=== PATIENT | female | born 1945 | race African-American/Black ===

== ENCOUNTER 2017-08-03 07:51 | Outpatient (CLI) | payer MEDICARE | END 2017-08-03 07:52 | disposition home or self-care (01) | LOC: BICMAMMO 07:51 | PROVIDERS: ATTEND Obstetrics & Gynecology | DX: Z12.31 Encounter for screening mammogram for malignant neoplasm of breast (principal) | CPT/HCPCS: 77063; 77067 ==

== ENCOUNTER 2018-01-05 05:16 | Emergency (ER) | payer MEDICARE ==
--- NOTE | 2018-01-05 08:37 | RAD ---
TWO VIEWS LEFT HIP: HISTORY: Pain. The patient went to stand up and felt a pop. COMPARISON: 08/23/16. FINDINGS: Stable mild degenerative change with loss of joint space height. Contour of the femoral head is main tained. There is no fracture. Visualized bony pelvis is otherwise unchanged and unremarkable. IMPRESSION: Stable mild degenerative change, without evidence of fracture of dislocation. POS: [facility]
== END 2018-01-05 06:54 | disposition home or self-care (01) ==
LOC: ERS 05:16
DX: M25.552 Pain in left hip (principal); G43.909 Migraine, unspecified, not intractable, without status migrainosus; J44.9 Chronic obstructive pulmonary disease, unspecified; I50.9 Heart failure, unspecified; F17.210 Nicotine dependence, cigarettes, uncomplicated; Z79.899 Other long term (current) drug therapy

== ENCOUNTER 2018-05-11 23:15 | Observation (INO) | payer MEDICARE ==
[2018-05-12] MEDS ORDERED: Ondansetron ODT 4 MG TAB ONE
[2018-05-12] MEDS ORDERED: Dextrose 5% in Water 1,000 ML IV PRN (03:50)
[2018-05-12] MEDS ORDERED: Ondansetron PF 4 MG/2 ML Vial IVP PRN (03:50)
[2018-05-12] MEDS ORDERED: HYDROcodone/Acetaminophen 10/325 mg Tablet PO PRN (03:50)
[2018-05-12] MEDS ORDERED: Dextrose 50% Abboject 50 ML SYRINGE SLOW IVP PRN (03:50)
[2018-05-12] MEDS ORDERED: hydrALAZINE 20 MG/ML VIAL SLOW IVP PRN (03:50)
[2018-05-12] MEDS ORDERED: traMADol HCl 50 MG TAB PO PRN (03:55)
[2018-05-12] MEDS ORDERED: HYDROcodone/Acetaminophen 5/325 mg Tablet ONE ×2 (04:02)
[2018-05-12 04:10] LABS: #Eosinphils 0.2 thou/uL (0.0-0.7); #Lymphocytes 2.4 thou/uL (1.20-3.40); #Monocytes 0.7 thou/uL (0.11-0.59); #Neutrophils 3.7 thou/uL (1.40-6.50); %Basophils 0.6 % (0.0-1.0); %Eosinophils 3.1 % (0.0-10.0); %Lymphocytes 34.3 % (21.0-51.0); %Monocytes 9.5 % (0.0-10.0); %Neutrophils 52.5 % (42.0-75.0); Hemoglobin 11.6 g/dL (12.0-16.0); Mean Corpuscular HGB CONC 32.1 g/dL (32.0-36.0); Mean Corpuscular Hemoglobin 29.7 pg (27.0-31.0); Mean Corpuscular Volume 92.7 fL (78.0-98.0); Mean Platelet Volume 7.6 fL (7.4-10.4); Platelet Count 225 thou/uL (130-400); RBC Distribution Width 12.1 % (11.5-14.5)
[2018-05-12 04:58] VITALS: BMI 23.8
[2018-05-12] MEDS: Acetaminophen 325 MG TAB PO SCH ×4 (05:13→23:18)
[2018-05-12] MEDS: traMADol HCl 50 MG TAB PO SCH ×4 (05:13→23:20)
[2018-05-12] MEDS: Ipratropium Bromide 2.5 ml Neb NEB SCH ×3 (06:26→19:55)
[2018-05-12] MEDS: Budesonide 0.5 MG/2 ML NEB INH SCH ×2 (06:28→21:45)
[2018-05-12] MEDS ORDERED: Spiriva 18 MCG CAP (Box of 5 Caps) INH SCH (07:00)
--- NOTE | 2018-05-12 07:35 | RAD ---
LEFT KNEE 4 VIEWS: Date: 05/11/18 HISTORY: Pain. COMPARISON: None. FINDINGS: There is a subtle sagittally oriented lucency of the medial tibial spine. Fracture line is seen exten ding to the medial tibial metaphysis. No articular surface extension. No significant joint effusion. IMPRESSION: Age-indeterminate fracture of the medial tibial spine extending to the medial tibial metaphysis. POS: [facility]
--- NOTE | 2018-05-12 07:38 | CT ---
CT LEFT KNEE WITHOUT CONTRAST: Date: 05/12/18 HISTORY: Trauma. Follow-up. COMPARISON: Radiograph from same date. FINDINGS: There is a sagittal split fracture extending from the medial tibial spine with two separate exit poin ts of the medial tibial diaphysis and lateral tibial diaphysis. These fractures are nondisplaced. Giv en the lack of joint effusion, these may not be hyperacute. There is, however, no articular surface e xtension; therefore, this may explain the lack of joint effusion. There is lateral patellar subluxation with elongation of the lateral patellar facet. IMPRESSION: Sagittal split fracture of the medial tibial spine with two separate exit points extending the medial and lateral tibial metadiaphysis. No significant joint effusion, although this fracture does not ext end into the articular surface. POS: [facility]
[2018-05-12] MEDS: predniSONE 1 MG TAB PO SCH (08:42)
[2018-05-12] MEDS: Aspirin 81 mg Enteric Coated Tablet PO SCH (08:43)
[2018-05-12] MEDS: Famotidine 20 MG TAB PO SCH ×2 (08:43→21:25)
[2018-05-12] MEDS: Furosemide 40 MG TAB PO SCH (08:43)
[2018-05-12] MEDS: Potassium Chloride 20 MEQ TAB PO SCH (08:45)
[2018-05-12] MEDS: Carvedilol 6.25 MG TAB PO SCH ×2 (08:46→21:24)
[2018-05-12] MEDS: Heparin 5,000 UNITS/ML VIAL SC SCH ×3 (08:46→21:26)
[2018-05-12] MEDS ORDERED: Leflunomide 10 mg Tablet PO SCH (09:00)
--- NOTE | 2018-05-12 11:01 | HP ---
Referred by Dr. Eulalia Herrera in the Emergency Department. TRAUMA ATTENDING: Son Corley MD CONSULTING ORTHOPEDIST: Jarred Sena MD REASON FOR ADMISSION: Left tibial plateau fracture, unable to get into rehab this evening. HISTORY OF PRESENT ILLNESS: Ms. Palomino is a 72-year-old female with past medical history of CHF with last known EF at 20%, COPD, not on home oxygen, rheumatoid arthritis, who presents to the Emergency Department today with a chief complaint of 1 day of left knee pain. The patient states that she tripped on a scarf from the floor, landing straight on her left knee. Had immediate pain to the area and presented here. The patient was found on CT to have tibial plateau fracture. Orthopedics was consulted and recommended nonweightbearing, knee immobilizer, and bulky dressing. Nonoperative at this time. However, the patient was reportedly being at home by herself. There is concern about her ADLs, nonweightbearing, using crutches. Therefore, [facility] was consulted and given her insurance, it was unable to be approved, therefore we were consulted for admission while awaiting approval for inpatient rehab. I have discussed with the patient at bedside. Her daughter actually does live with her, and is home nightly, works out of town, but not overnight. However, she still believes that rehab would be the best option believe that she would be able to complete all of her ADLs, therefore we will go forward with admission. I have seen the patient in the Emergency Department, complaining of knee pain, has been controlled with [place]. There are no labs to review at this time. She has no other complaints. She had no chest pain, no shortness of breath, no nausea, no vomiting, no recent illness, no fever, no headache, no neck pain, no back pain. Pain is isolated to her left knee. Her vital signs remained stable here. The patient's primary care is Dr. Migue Jimenez. REVIEW OF SYSTEMS: Pertinent positive and negative as per HPI; otherwise, is regarded as negative. PAST MEDICAL HISTORY: 1. CHF with reduced EF. 2. COPD. 3. Rheumatoid arthritis. MEDICATIONS: 1. . 2. Amitriptyline 150 mg daily. 3. Lasix 40 mg daily. 4. Potassium 20 mEq daily. 5. Cymbalta 60 mg daily. 6. Coreg 12.5 mg b.i.d. 7. Atorvastatin daily. 8. Breo 1 puff daily. 9. Prednisone 3 mg total daily. 10. Spiriva 18 mcg daily. ALLERGIES: TO, 1. ALBUTEROL CAUSING SEVERE ANXIETY. 2. CODEINE. SOCIAL HISTORY: The patient is a retired corrections officer. She is a former smoker. Social drinker and no drug use. Currently, lives in [place] with her daughter. PAST FAMILY HISTORY: Significant for COPD in her mother, lung cancer in her father, lung cancer and ovarian cancer in both of her sisters. PHYSICAL EXAMINATION: VITAL SIGNS: Blood pressure is 131/83, heart rate is 87, respiratory rate is 18, saturating 94% on room air, and temperature is 98.5. GENERAL: This is a 72-year-old female, lying in bed, in no acute distress. HEENT: Normocephalic, atraumatic. NECK: Trachea is midline. No JVD is appreciated. RESPIRATORY: Equal rise and fall bilaterally. Breath sounds are clear to auscultation in upper and lower bilaterally. CARDIOVASCULAR: Regular rate and rhythm. No murmurs are appreciated. Strong pulses in 4 extremities. No edema. ABDOMEN: Soft and nontender. MUSCULOSKELETAL: Moves extremities well. Has sensation and pulses noted distal to her splinting of the left lower extremity that is in a straight knee immobilizer at this time. PSYCH: Normal mood and affect. NEURO: Alert and oriented to person, place, time, and event. LABORATORY DATA: There is none to review today. I have reviewed past medical chart for last known EF of 20% to 25% by left heart cath. CT of lower extremity demonstrates a left tibial plateau fracture. ASSESSMENT: 1. Left tibial plateau fracture. 2. Acute traumatic pain. 3. Mechanical fall. 4. History of chronic obstructive pulmonary disease, congestive heart failure, and rheumatoid arthritis. PLAN: 1. We will admit to the surgery elias. 2. Pain control as needed. 3. Obtain CBC and CMP now for screening labs. 4. Scheduled Tylenol and tramadol. We will add NSAID based on renal function. 5. Oxygen as needed to maintain SpO2 greater than 92%. 6. Continue Spiriva and budesonide daily. The patient reported allergic to albuterol. 7. Continue prednisone daily. 8. Continue home medications. 9. We will get social work consult and rehab screen tomorrow. 10. PT/OT orders have been placed. 11. Diet will be cardiac diet. 12. Full code. 13. Access of peripheral IVs. 14. Prophylaxis will be famotidine and SCD. Add Lovenox after labs are back if tolerated. 15. Disposition is surgery elias. I have updated Ms. Palomino at the bedside, there is no family to update and answered all questions and coordinated care with the Emergency Department physician. Job ID: [id number]
[2018-05-12] MEDS: Atorvastatin Calcium 20 MG TAB PO SCH (21:25)
[2018-05-13] MEDS: Ipratropium Bromide 2.5 ml Neb NEB SCH ×5 (00:53→23:10)
[2018-05-13] MEDS: Acetaminophen 325 MG TAB PO SCH ×3 (05:10→17:47)
[2018-05-13] MEDS: traMADol HCl 50 MG TAB PO SCH ×3 (05:10→17:49)
[2018-05-13] MEDS: Budesonide 0.5 MG/2 ML NEB INH SCH ×2 (06:59→19:50)
[2018-05-13 07:18] LABS: #Eosinphils 0.3 thou/uL (0.0-0.7); #Lymphocytes 3.1 thou/uL (1.20-3.40); #Monocytes 0.6 thou/uL (0.11-0.59); #Neutrophils 3.5 thou/uL (1.40-6.50); %Basophils 0.6 % (0.0-1.0); %Eosinophils 3.8 % (0.0-10.0); %Lymphocytes 41.2 % (21.0-51.0); %Monocytes 8.1 % (0.0-10.0); %Neutrophils 46.4 % (42.0-75.0); Hemoglobin 10.6 g/dL (12.0-16.0); Mean Corpuscular HGB CONC 32.8 g/dL (32.0-36.0); Mean Corpuscular Volume 91.5 fL (78.0-98.0); Mean Platelet Volume 8.1 fL (7.4-10.4); Platelet Count 235 thou/uL (130-400); RBC Distribution Width 12.2 % (11.5-14.5); Red Blood Cell (RBC) Count 3.54 mill/uL (4.20-5.40); White Blood Cell (WBC) Count 7.5 thou/uL (4.8-10.8)
[2018-05-13 07:39] LABS: Anion Gap 13 mmol/L (10-20); BUN (Urea Nitrogen) 16 mg/dL (9.8-20.1); Calc. Creatinine Clearance 42 mL/min (70-130); Calcium 9.4 mg/dL (7.8-10.44); Carbon Dioxide 27 mmol/L (23-31); Chloride 105 mmol/L (98-107); Estimated GFR-MDRD 53; Glucose 97 mg/dL (83-110); Potassium 3.7 mmol/L (3.5-5.1); Sodium 141 mmol/L (136-145)
[2018-05-13] MEDS: Furosemide 40 MG TAB PO SCH (09:39)
[2018-05-13] MEDS: Aspirin 81 mg Enteric Coated Tablet PO SCH (09:39)
[2018-05-13] MEDS: predniSONE 1 MG TAB PO SCH (09:39)
[2018-05-13] MEDS: Famotidine 20 MG TAB PO SCH ×2 (09:40→20:35)
[2018-05-13] MEDS: Carvedilol 6.25 MG TAB PO SCH ×2 (09:40→20:35)
[2018-05-13] MEDS: Leflunomide 10 mg Tablet PO SCH (09:40)
[2018-05-13] MEDS: Heparin 5,000 UNITS/ML VIAL SC SCH ×3 (09:40→20:35)
[2018-05-13] MEDS: Potassium Chloride 20 MEQ TAB PO SCH (09:40)
[2018-05-13] MEDS: Senokot S 8.6-50 MG TAB PO SCH (20:33)
[2018-05-13] MEDS: Atorvastatin Calcium 20 MG TAB PO SCH (20:35)
--- NOTE | 2018-05-13 21:20 | PRG ---
DATE OF SERVICE: 05/13/2018 SUBJECTIVE: A 72-year-old female status post tripped and fell, landing on her left knee, hospital day #2, left tibial plateau fracture, nonsurgical. The patient remains in a knee immobilizer. Reports moderate pain with physical therapy. She was unable to ambulate very far due to the pain today. No overnight events. The patient reports moderate appetite at this time. No BM since admission. OBJECTIVE: VITAL SIGNS: Blood pressure 124/76, pulse 88, respirations 16, and 93% on SpO2 on room air. LABORATORY DATA: WBC 7.5, RBC 3.54, hemoglobin 10.6, hematocrit 32.4, and platelets 235. Sodium 141, potassium 3.7, chloride 105, BUN 16, creatinine 1.21, glucose 97, and calcium 9.4. No diagnostics. ASSESSMENT AND PLAN: 1. Left tibial plateau fracture. 2. Acute traumatic pain. 3. Mechanical fall. 4. History of chronic obstructive pulmonary disease, congestive heart failure, and rheumatoid arthritis. PLAN: 1. Pain control as needed. 2. Discontinue the hydrocodone and schedule the patient with Tylenol and tramadol. 3. Continue PT, OT. 4. Rehab screen. 5. We will place the patient on DVT prophylaxis. 6. We will place the patient on a bowel regimen. 7. The patient has been discussed with the attending surgeon. Job ID: [id number] [facility]
[2018-05-14] MEDS: traMADol HCl 50 MG TAB PO SCH ×4 (01:12→18:06)
[2018-05-14] MEDS: Acetaminophen 325 MG TAB PO SCH ×4 (01:12→18:07)
[2018-05-14] MEDS: Ipratropium Bromide 2.5 ml Neb NEB SCH ×3 (06:55→19:52)
[2018-05-14] MEDS: Budesonide 0.5 MG/2 ML NEB INH SCH ×2 (06:57→19:52)
[2018-05-14] MEDS: predniSONE 1 MG TAB PO SCH (08:00)
[2018-05-14] MEDS: Polyethylene Glycol 3350 17 GM Packet PO SCH (09:24)
[2018-05-14] MEDS: Carvedilol 6.25 MG TAB PO SCH ×2 (09:25→20:12)
[2018-05-14] MEDS: Leflunomide 10 mg Tablet PO SCH (09:25)
[2018-05-14] MEDS: Senokot S 8.6-50 MG TAB PO SCH ×2 (09:25→20:12)
[2018-05-14] MEDS: Famotidine 20 MG TAB PO SCH ×2 (09:26→20:12)
[2018-05-14] MEDS: Aspirin 81 mg Enteric Coated Tablet PO SCH (09:26)
[2018-05-14] MEDS: Furosemide 40 MG TAB PO SCH (09:26)
[2018-05-14] MEDS: Heparin 5,000 UNITS/ML VIAL SC SCH ×3 (09:26→20:12)
[2018-05-14] MEDS: Potassium Chloride 20 MEQ TAB PO SCH (09:26)
--- NOTE | 2018-05-14 19:57 | PRG ---
DATE OF SERVICE: 05/14/2018 SUBJECTIVE: This is a 72-year-old female status post trip and fall, landing on her left knee, hospital day #3, left tibial plateau fracture. Nonsurgical injury. The patient remains in a knee immobilizer. The patient has refused several doses of her scheduled pain medication throughout the night and this morning. Also refused her stool softeners as she has reported loose stools. The patient reported to the nurse that she refused pain medication as her pain was well tolerated at those times. The patient did participate with Physical Therapy today, but only walked 14 feet as she complained that she needed to rest and felt tired with the nonweightbearing activities. OBJECTIVE: VITAL SIGNS: Temperature 98.1, pulse 92, blood pressure 123/82, respirations 16, and SpO2 of 93% on room air. LABORATORY DATA/DIAGNOSTICS: There is no laboratory data or diagnostics. ASSESSMENT AND PLAN: We will continue physical therapy and pain management. The patient has been approved for inpatient rehab, pending insurance. This patient has been discussed with the attending surgeon. Job ID: [id number] [facility]
[2018-05-14] MEDS: Atorvastatin Calcium 20 MG TAB PO SCH (20:12)
[2018-05-15] MEDS: Ipratropium Bromide 2.5 ml Neb NEB SCH ×4 (00:06→19:22)
[2018-05-15] MEDS: Acetaminophen 325 MG TAB PO SCH ×4 (01:40→17:24)
[2018-05-15] MEDS: traMADol HCl 50 MG TAB PO SCH ×4 (03:04→17:25)
[2018-05-15] MEDS: Budesonide 0.5 MG/2 ML NEB INH SCH ×2 (07:13→19:22)
[2018-05-15 08:09] LABS: #Eosinphils 0.3 thou/uL (0.0-0.7); #Lymphocytes 3.2 thou/uL (1.20-3.40); #Monocytes 0.5 thou/uL (0.11-0.59); #Neutrophils 3.3 thou/uL (1.40-6.50); %Basophils 0.3 % (0.0-1.0); %Eosinophils 3.4 % (0.0-10.0); %Lymphocytes 43.6 % (21.0-51.0); %Monocytes 7.3 % (0.0-10.0); %Neutrophils 45.3 % (42.0-75.0); Hemoglobin 10.9 g/dL (12.0-16.0); Mean Corpuscular HGB CONC 31.8 g/dL (32.0-36.0); Mean Corpuscular Volume 91.2 fL (78.0-98.0); Mean Platelet Volume 7.5 fL (7.4-10.4); Platelet Count 259 thou/uL (130-400); RBC Distribution Width 12.2 % (11.5-14.5); Red Blood Cell (RBC) Count 3.76 mill/uL (4.20-5.40); White Blood Cell (WBC) Count 7.4 thou/uL (4.8-10.8)
[2018-05-15 08:27] LABS: Anion Gap 14 mmol/L (10-20); BUN (Urea Nitrogen) 18 mg/dL (9.8-20.1); Calc. Creatinine Clearance 42 mL/min (70-130); Calcium 9.5 mg/dL (7.8-10.44); Carbon Dioxide 28 mmol/L (23-31); Chloride 103 mmol/L (98-107); Estimated GFR-MDRD 53; Glucose 82 mg/dL (83-110); Magnesium 2.1 mg/dL (1.6-2.6); Phosphorus 3.1 mg/dL (2.3-4.7); Potassium 3.6 mmol/L (3.5-5.1); Sodium 141 mmol/L (136-145)
[2018-05-15] MEDS: Famotidine 20 MG TAB PO SCH ×2 (08:44→20:13)
[2018-05-15] MEDS: Furosemide 40 MG TAB PO SCH (08:44)
[2018-05-15] MEDS: Potassium Chloride 20 MEQ TAB PO SCH (08:45)
[2018-05-15] MEDS: Aspirin 81 mg Enteric Coated Tablet PO SCH (08:45)
[2018-05-15] MEDS: Carvedilol 6.25 MG TAB PO SCH ×2 (08:45→20:12)
[2018-05-15] MEDS: Leflunomide 10 mg Tablet PO SCH (08:46)
[2018-05-15] MEDS: predniSONE 1 MG TAB PO SCH (08:47)
[2018-05-15] MEDS: Heparin 5,000 UNITS/ML VIAL SC SCH ×3 (08:48→20:12)
[2018-05-15] MEDS: Polyethylene Glycol 3350 17 GM Packet PO SCH (08:56)
[2018-05-15] MEDS: Senokot S 8.6-50 MG TAB PO SCH ×2 (08:57→20:08)
--- NOTE | 2018-05-15 16:10 | PRG ---
DATE OF SERVICE: 05/15/2018 SUBJECTIVE: A 72-year-old female, status post trip and fall, landing on her left knee, hospital day #4, left tibial plateau fracture, nonsurgical injury. The patient remains in a knee immobilizer. States that she slept well last night. The patient was able to get up to the bedside commode by herself and reports it was easier this time and feels like she is getting a little better. The patient has not done physical therapy at this time yet. She reports that the loose stools have improved, but having normal bowel movements. The patient did refuse her 0600 hours dose of pain medication. States that she did not need it. Says that her pain has been well controlled. OBJECTIVE: VITAL SIGNS: Temperature 97.9, heart rate 85, respirations 16, blood pressure 120/80, and SpO2 of 94% on room air. GENERAL: The patient is awake, alert, sitting upright in bed, in no distress. RESPIRATORY: Respirations are even, unlabored, and symmetrical. MUSCULOSKELETAL: The patient moves all extremities. Normal distal pulses. LABORATORY DATA: WBC 7.4, RBCs 3.76, hemoglobin 10.9, hematocrit 34.3, and platelets 259. Sodium 141, potassium 3.6, chloride 103, BUN 18, creatinine 1.21 , glucose 82, calcium 9.5, phosphorus 3.1, and magnesium 2.1. ASSESSMENT AND PLAN: We will continue physical therapy and pain management at this time. The patient has been approved medically for inpatient rehab. I spoke with the Case Management worker yesterday. We are pending insurance approval. Continue supportive care. This patient has been discussed with the attending physician, surgeon. Job ID: [id number] [facility]
[2018-05-15] MEDS: Atorvastatin Calcium 20 MG TAB PO SCH (20:13)
[2018-05-16] MEDS: Ipratropium Bromide 2.5 ml Neb NEB SCH ×5 (00:15→23:18)
[2018-05-16] MEDS: traMADol HCl 50 MG TAB PO SCH ×4 (00:23→17:19)
[2018-05-16] MEDS: Acetaminophen 325 MG TAB PO SCH ×4 (00:23→17:17)
[2018-05-16 05:24] LABS: Bilirubin Negative (Negative); Blood, Urine Negative (Negative); Clarity CLEAR (Clear); Glucose, Urine (Dipstick) Negative (Negative); Leukocyte Small (Negative); Nitrite Negative (Negative); Protein, Urine (Dipstick) Negative (Neg-Trace); Specific Gravity, Urine 1.016 (1.002-1.036); Urobilinogen 0.2 mg/dL (0.2-1.0); pH, Urine 6.5 (5.0-9.0)
[2018-05-16 05:27] LABS: Bacteria/HPF None Seen HPF (None Seen); Hyaline Casts/LPF 0-3 HYALINE CAST LPF (0-3 Hyaline); Pathc Cast-AUWi Flag 0.14 (0-2.49); RBC/HPF 0-3 HPF (0-3); Squamous Epithelial 0-3 HPF (0-3); WBC/HPF 0-3 HPF (0-3)
[2018-05-16] MEDS: Budesonide 0.5 MG/2 ML NEB INH SCH ×2 (08:13→18:48)
[2018-05-16] MEDS: Leflunomide 10 mg Tablet PO SCH (08:31)
[2018-05-16] MEDS: Polyethylene Glycol 3350 17 GM Packet PO SCH (08:31)
[2018-05-16] MEDS: Famotidine 20 MG TAB PO SCH ×2 (08:32→20:12)
[2018-05-16] MEDS: Potassium Chloride 20 MEQ TAB PO SCH (08:32)
[2018-05-16] MEDS: Senokot S 8.6-50 MG TAB PO SCH ×2 (08:33→20:12)
[2018-05-16] MEDS: Furosemide 40 MG TAB PO SCH (08:33)
[2018-05-16] MEDS: Carvedilol 6.25 MG TAB PO SCH ×2 (08:33→20:11)
[2018-05-16] MEDS: Heparin 5,000 UNITS/ML VIAL SC SCH ×3 (08:34→20:11)
[2018-05-16] MEDS: Aspirin 81 mg Enteric Coated Tablet PO SCH (08:34)
[2018-05-16] MEDS: predniSONE 1 MG TAB PO SCH (09:35)
[2018-05-16] MEDS ORDERED: Tamsulosin HCl 0.4 MG CAP PO SCH ×2 (13:45→21:00)
--- NOTE | 2018-05-16 18:22 | PRG ---
DATE OF SERVICE: 05/16/2018 SUBJECTIVE: The patient is a 72-year-old female, status post trip and fall, landing on her left knee, hospital day #5. The patient sustained a left tibial plateau fracture, was evaluated by Orthopedic Surgery, who determined the patient was nonsurgical. The patient remains in a left knee immobilizer. The patient did have some urinary retention overnight but did resolve and was able to urinate without any difficulty. The patient reports she is getting better with physical therapy. She was able to walk approximately 40 feet today. She continues to have bowel movements. The patient voices no other concerns. Pain continues to be well controlled. The patient was denied inpatient rehab by patient's insurance [employer]. OBJECTIVE: VITAL SIGNS: Temperature 98.0, pulse 93, respirations 16, pulse ox 96%, blood pressure 102/68. GENERAL: The patient is awake, alert, no distress, sitting up in bed. HEENT: Atraumatic. Trachea, midline. RESPIRATORY: Respirations even nonlabored and symmetrical. MUSCULOSKELETAL: Moves all extremities. No focal deficits. Positive distal pedal pulses +2. No pedal edema. NEUROLOGIC: No deficits. LABORATORY DATA: There are no labs to evaluate today. ASSESSMENT AND PLAN: We will continue physical therapy and pain management at this time. Case management working on getting the patient placed at a [facility] facility for rehab as the patient was denied inpatient rehab. The patient was denied by her insurance stating that her diagnosis of a tibial plateau fracture did not meet inpatient rehab, was not necessary for that long of rehab, but she would meet criteria for shorter periods of rehab such as skilled facility. We will continue the patient's pain medications and home medications. The patient has been discussed with the attending surgeon. Job ID: [id number]
[2018-05-16] MEDS: Atorvastatin Calcium 20 MG TAB PO SCH (20:12)
[2018-05-17] MEDS: traMADol HCl 50 MG TAB PO SCH ×4 (01:08→17:23)
[2018-05-17] MEDS: Acetaminophen 325 MG TAB PO SCH ×3 (01:08→14:49)
[2018-05-17] MEDS: Ipratropium Bromide 2.5 ml Neb NEB SCH ×3 (06:27→18:57)
[2018-05-17] MEDS: Budesonide 0.5 MG/2 ML NEB INH SCH ×2 (06:29→19:22)
[2018-05-17] MEDS: predniSONE 1 MG TAB PO SCH (08:28)
[2018-05-17] MEDS: Heparin 5,000 UNITS/ML VIAL SC SCH ×3 (08:29→20:28)
[2018-05-17] MEDS: Polyethylene Glycol 3350 17 GM Packet PO SCH (08:29)
[2018-05-17] MEDS: Leflunomide 10 mg Tablet PO SCH (08:29)
[2018-05-17] MEDS: Senokot S 8.6-50 MG TAB PO SCH ×2 (08:30→20:28)
[2018-05-17] MEDS: Famotidine 20 MG TAB PO SCH ×2 (08:31→20:27)
[2018-05-17] MEDS: Potassium Chloride 20 MEQ TAB PO SCH (08:31)
[2018-05-17] MEDS: Aspirin 81 mg Enteric Coated Tablet PO SCH (08:32)
[2018-05-17] MEDS: Carvedilol 6.25 MG TAB PO SCH ×2 (08:32→20:26)
[2018-05-17] MEDS: Furosemide 40 MG TAB PO SCH (08:32)
[2018-05-17] MEDS: Acetaminophen 500 MG TAB PO SCH ×2 (11:56→18:13)
--- NOTE | 2018-05-17 13:53 | PRG ---
DATE OF SERVICE: 05/17/2018 HISTORY OF PRESENT ILLNESS: The patient is currently on the medicine floor. She is status post a ground level fall, in which she sustained a nondisplaced left tibial plateau fracture that is being managed nonoperatively. The patient is awaiting placement. The patient was reportedly denied inpatient rehab yesterday, and today, work will be started on getting her placed at a [facility] facility. Otherwise, the patient has had no issues overnight. Her pain is controlled. She is tolerating a diet. Her bowel function has returned. PHYSICAL EXAMINATION: VITAL SIGNS: Temperature is 97.9, heart rate 94, blood pressure 141/85, respirations 16, and oxygen saturation is 96% on room air. GENERAL: The patient is resting comfortably in bed. She is awake, alert, and oriented x3. [place] Coma Scale is 15. HEENT: Unremarkable. LUNGS: Clear to auscultation with good inspiratory and expiratory effort. HEART: Regular rate and rhythm. ABDOMEN: Soft, flat, nontender with active bowel sounds. EXTREMITIES: Neurovascularly intact x4. The patient has a knee immobilizer on, it appears to be well fitting. DIAGNOSTIC STUDIES: There are no labs or radiographs to review this morning. ASSESSMENT: 1. Status post ground level fall. 2. Left tibial plateau fracture. PLAN: Plan will be to continue supportive care, physical and occupational therapy and await placement decision. The patient was seen with Dr. Butcher during rounds this morning. Job ID: [id number]
[2018-05-17] MEDS: Atorvastatin Calcium 20 MG TAB PO SCH (20:27)
[2018-05-17] MEDS: Tamsulosin HCl 0.4 MG CAP PO SCH (20:28)
--- NOTE | 2018-05-17 23:33 | CON ---
DATE OF CONSULTATION: 05/13/2018 ORTHOPEDIC CONSULTATION BRIEF HISTORY OF PRESENT ILLNESS: Ms. Palomino is a 72-year-old lady with extensive history of congestive heart failure, COPD and rheumatoid arthritis, who presented to the emergency room on 05/12 with chief complaint of left knee pain. The patient states that she tripped over a scarf, landing on her left knee with immediate pain. In the emergency room, plain x-ray as well as CT scan were obtained that showed a nondisplaced fracture of the left tibial plateau. Given the nondisplaced nature as well as patient's extensive medical history and comorbidities that make her high surgical risk, we decided to proceed with nonsurgical management of this fracture. Unfortunately, the patient could not be directly admitted to rehab and as such is admitted to the hospital for medical care and to obtain consultation from [facility] for possible inpatient rehab stay. As such, Orthopedic consultation was requested. PAST MEDICAL HISTORY: Remarkable for CHF, COPD, and rheumatoid arthritis. MEDICATIONS: Include, 1. Amitriptyline. 2. Lasix. 3. Potassium. 4. Cymbalta. 5. Coreg. 6. Atorvastatin. 7. Prednisone. 8. Spiriva. ALLERGIES: TO ALBUTEROL AND CODEINE. SOCIAL HISTORY: She is a former smoker, although has not smoked 10 years. Drinks alcohol socially. Denies recreational drug use. Lives in the [place] area with her daughter. FAMILY HISTORY: Noncontributory for orthopedic injury. REVIEW OF SYSTEMS: Denies recent fevers, chills, or sweats. She does have chronic shortness of breath, but denies current chest pain. Denies numbness or tingling in the lower extremity. PHYSICAL EXAMINATION: VITAL SIGNS: Found to have a temperature of 98.5, heart rate of 87, respiratory rate of 18, and blood pressure 131/83. GENERAL: She is found to be awake, alert, and in no acute distress. HEENT: Atraumatic, normocephalic. HEART: Shows a regular rate and rhythm. LUNGS: Clear to auscultation. EXTREMITIES: Remarkable for left lower extremity with atraumatic hip, ankle and foot. She has intact sensation. The knee is remarkable for tenderness to palpation of the proximal tibia, but no angular or rotational deformity. Knee exam is not possible due to the acute nature of this left plateau fracture. ASSESSMENT: X-ray AP, lateral, and obliques of the left knee as well as CT scan remarkable for a nondisplaced tibial plateau fracture. PLAN: At this time, the patient will be admitted for medical care. She needs to remain strict nonweightbearing. She will be placed in a knee immobilizer at this time and then convert to a hinged knee brace locked in her position of comfort. We will see patient back in the office in approximately 3 to 4 weeks time for re-evaluation and followup x-ray. Job ID: [id number]
[2018-05-18] MEDS: Ipratropium Bromide 2.5 ml Neb NEB SCH ×4 (00:16→19:06)
[2018-05-18] MEDS: Acetaminophen 500 MG TAB PO SCH ×4 (05:33→18:46)
[2018-05-18] MEDS: traMADol HCl 50 MG TAB PO SCH ×4 (05:36→18:46)
[2018-05-18] MEDS: Budesonide 0.5 MG/2 ML NEB INH SCH ×2 (06:58→19:07)
[2018-05-18] MEDS: Famotidine 20 MG TAB PO SCH ×2 (08:00→20:10)
[2018-05-18] MEDS: Leflunomide 10 mg Tablet PO SCH (08:00)
[2018-05-18] MEDS: Carvedilol 6.25 MG TAB PO SCH ×2 (08:01→20:09)
[2018-05-18] MEDS: Aspirin 81 mg Enteric Coated Tablet PO SCH (08:01)
[2018-05-18] MEDS: Furosemide 40 MG TAB PO SCH (08:01)
[2018-05-18] MEDS: Potassium Chloride 20 MEQ TAB PO SCH (08:01)
[2018-05-18] MEDS: Polyethylene Glycol 3350 17 GM Packet PO SCH (08:02)
[2018-05-18] MEDS: Senokot S 8.6-50 MG TAB PO SCH ×2 (08:02→20:15)
[2018-05-18] MEDS: Heparin 5,000 UNITS/ML VIAL SC SCH ×3 (08:02→20:15)
[2018-05-18] MEDS: predniSONE 1 MG TAB PO SCH (08:41)
--- NOTE | 2018-05-18 15:08 | PRG ---
DATE OF SERVICE: 05/18/2018 SUBJECTIVE: The patient remains on the medical floor. She is status post ground level fall when she sustained a nondisplaced tibial plateau fracture on her left side. The patient is being treated nonoperatively. She has been waiting for placement. Two days ago, it was felt that she was going to be discharged with insurance declined inpatient rehab. We are now working for [facility] facility. The patient states that her pain is controlled. She is tolerating a diet. Her bowel functions returned. PHYSICAL EXAMINATION: VITAL SIGNS: Temperature is 97.9, heart rate 91, blood pressure 104/64, respirations 18, and oxygen saturation 94% on room air. GENERAL: The patient is resting comfortably in bed. She is awake, alert, and oriented x3. [place] Coma Scale is 15. HEENT: Unremarkable. LUNGS: Clear to auscultation with good inspiratory and expiratory effort. HEART: Regular rate and rhythm. ABDOMEN: Soft, flat, and nontender with active bowel sounds. EXTREMITIES: Neurovascularly intact x4. Left lower extremity remains immobilized in a knee immobilizer. LABORATORY DATA: There are no labs or radiographs to review this morning. ASSESSMENT: 1. Status post ground level fall. 2. Left tibial plateau fracture. PLAN: Plan will be to continue supportive care. Work with Physical and Occupational Therapy and await final placement decision. Job ID: [id number]
[2018-05-18] MEDS: Atorvastatin Calcium 20 MG TAB PO SCH (20:09)
[2018-05-18] MEDS: Tamsulosin HCl 0.4 MG CAP PO SCH (20:09)
[2018-05-19] MEDS: Acetaminophen 500 MG TAB PO SCH ×3 (00:29→12:02)
[2018-05-19] MEDS: traMADol HCl 50 MG TAB PO SCH ×3 (00:31→07:54)
[2018-05-19] MEDS: Ipratropium Bromide 2.5 ml Neb NEB SCH ×3 (00:31→13:15)
[2018-05-19] MEDS: Budesonide 0.5 MG/2 ML NEB INH SCH (06:40)
[2018-05-19] MEDS: Polyethylene Glycol 3350 17 GM Packet PO SCH (07:54)
[2018-05-19] MEDS: Famotidine 20 MG TAB PO SCH (07:55)
[2018-05-19] MEDS: Furosemide 40 MG TAB PO SCH (07:55)
[2018-05-19] MEDS: Leflunomide 10 mg Tablet PO SCH (07:55)
[2018-05-19] MEDS: Senokot S 8.6-50 MG TAB PO SCH (07:55)
[2018-05-19] MEDS: Potassium Chloride 20 MEQ TAB PO SCH (07:55)
[2018-05-19] MEDS: Aspirin 81 mg Enteric Coated Tablet PO SCH (07:56)
[2018-05-19] MEDS: Heparin 5,000 UNITS/ML VIAL SC SCH ×2 (07:56→15:27)
[2018-05-19] MEDS: predniSONE 1 MG TAB PO SCH (07:56)
[2018-05-19] MEDS: Carvedilol 6.25 MG TAB PO SCH (07:56)
[2018-05-19 15:35] VITALS: BP 118/81; TEMP 98
--- NOTE | 2018-05-19 19:57 | DIS ---
DATE OF ADMISSION: 05/12/2018 DATE OF DISCHARGE: 05/19/2018 ADMISSION DIAGNOSES: 1. Status post fall. 2. Left tibial plateau fracture. 3. Acute traumatic pain. CONSULTATIONS: Orthopedics, Dr. Sena. PROCEDURES: None. SUMMARY: The patient is a 72-year-old woman, who reportedly had a ground level fall. She was brought to the emergency department, underwent evaluation and examination and was noted to have the above injury. The patient's radiographs were reviewed by Dr. Sena, who felt that the patient would be treated best with a nonoperative approach. She was placed in knee immobilizer and admitted to the hospital for pain control and to begin therapy. The patient had an extended stay due to weekend holiday and issues with getting insurance approval. The patient eventually had approval for a long-term facility, at which time, she will be discharged. At the time of discharge, she continued to progress with Physical and Occupational Therapy. She was tolerating a diet. Her pain was controlled. The patient will follow up with Dr. Sena in 2 weeks or sooner as needed. Job ID: [id number]
== END 2018-05-19 16:15 ==
LOC: ERS 23:15 → INTOOBSV 05-12 03:03 → OBSVTOIN 05-12 03:03 → T4-B 05-12 03:03
PROVIDERS: ADMIT Surgery; ATTEND Surgery
DX: S82.142A Displaced bicondylar fracture of left tibia, initial encounter for closed fracture (principal); I50.20 Unspecified systolic (congestive) heart failure; J44.9 Chronic obstructive pulmonary disease, unspecified; M06.9 Rheumatoid arthritis, unspecified; Z88.5 Allergy status to narcotic agent; Z88.8 Allergy status to other drugs, medicaments and biological substances; Z87.891 Personal history of nicotine dependence; Z79.82 Long term (current) use of aspirin; Z79.52 Long term (current) use of systemic steroids; Z79.899 Other long term (current) drug therapy; W01.0XXA Fall on same level from slipping, tripping and stumbling without subsequent striking against object, initial encounter
CPT/HCPCS: 51701; 73564; 73700; 80048 ×2; 81001; 83735; 84100; 85025 ×3; 94640 ×9; 97110 ×4; 97116 ×7; 97139 ×5; 97530; 99285; G0378 ×3; G8978; G8979; G8987; G8988; 36415; J1644; J7626; Q0162

== ENCOUNTER 2018-06-03 04:54 | Inpatient (IN) | payer MEDICARE ==
[2018-06-03] MEDS ORDERED: Nitroglycerin 0.4 MG TAB (25 Tab Bottle) ONE (05:07)
[2018-06-03 05:34] LABS: Hemoglobin 11.4 g/dL (12.0-16.0); Mean Corpuscular Hemoglobin 28.8 pg (27.0-31.0); Mean Corpuscular Volume 89.9 fL (78.0-98.0); Mean Platelet Volume 7.4 fL (7.4-10.4); Platelet Count 301 thou/uL (130-400); RBC Distribution Width 12.1 % (11.5-14.5); Red Blood Cell (RBC) Count 3.95 mill/uL (4.20-5.40); White Blood Cell (WBC) Count 13.2 thou/uL (4.8-10.8)
[2018-06-03 05:43] LABS: Actual Bicarbonate (HCO3a) 27.8 mEq/L (22-28); Analyzer IN Cardio ER; CO2 Tension 43.4 mmHg (35.0-45.0); Calcium, Ionized 1.09 mmol/L (1.12-1.30); Carboxyhemoglobin (COHb) 1.1 gm% (0.0-3.0); Hemoglobin (Hb) 11.1 g/dL (12.0-16.0); O2 Tension (PaO2) 65.6 mmHg (> 70.0); Potassium - ABG Lab 3.93 mmol/L (3.70-5.30); pH, Arterial 7.42 (7.35-7.45)
[2018-06-03 05:45] LABS: Puncture Site L RADIAL
[2018-06-03 05:47] LABS: Band 31 % (5-11); Eosinophils 1 % (0-10); Lymphocytes 7 % (21-51); MDiff Complete? YES; Monocytes 10 % (0-10); Neutrophil 51 % (42-75); Platelet Morphology Comment Appears Adequate
[2018-06-03 05:54] LABS: ALT (SGPT) 15 U/L (8-55); AST (SGOT) 20 U/L (5-34); Acetaminophen Less than 6.0 mcg/mL (10.0-30.0); Albumin 3.8 g/dL (3.4-4.8); Alcohol Less than 10 mg/dL (Less than 10); Alkaline Phosphatase 120 U/L (40-150); Anion Gap 17 mmol/L (10-20); BUN (Urea Nitrogen) 14 mg/dL (9.8-20.1); Bilirubin, Total 0.8 mg/dL (0.2-1.2); Calc. Creatinine Clearance 0 mL/min (70-130); Calcium 9.6 mg/dL (7.8-10.44); Carbon Dioxide 24 mmol/L (23-31); Chloride 102 mmol/L (98-107); Estimated GFR-MDRD 54; Globulin 3.6 g/dL (2.4-3.5); Glucose 121 mg/dL (83-110); Potassium 3.9 mmol/L (3.5-5.1); Protein, Total 7.4 g/dL (6.0-8.3); Salicylate Less than 8.0 mg/dL (15.0-30.0); Sodium 139 mmol/L (136-145)
[2018-06-03 06:18] LABS: Bilirubin Negative (Negative); Blood, Urine Negative (Negative); Clarity CLOUDY (Clear); Glucose, Urine (Dipstick) Negative (Negative); Leukocyte Small (Negative); Nitrite Negative (Negative); Protein, Urine (Dipstick) 30 mg/dL (Neg-Trace); Specific Gravity, Urine 1.021 (1.002-1.036)
[2018-06-03 06:20] LABS: Bacteria/HPF 1+ HPF (None Seen); Hyaline Casts/LPF 0-3 HYALINE CAST LPF (0-3 Hyaline); Pathc Cast-AUWi Flag 0.14 (0-2.49); RBC/HPF None Seen HPF (0-3); Squamous Epithelial None Seen HPF (0-3); WBC/HPF 0-3 HPF (0-3); Yeast-AUWi Flag 11.4 (0-25.0)
[2018-06-03 06:43] LABS: Amphetamine Not Detected (NotDetected); Barbiturates Screen Not Detected (NotDetected); Benzodiazepine Screen Not Detected (NotDetected); Cocaine Metabolite Screen Not Detected (NotDetected); Medtox Control Line Valid? VALID (VALID); Medtox Reader # READER 1; Methadone Not Detected (NotDetected); Methamphetamine Not Detected (NotDetected); Opiate Screen Not Detected (NotDetected); Oxycodone Screen Not Detected (NotDetected); Phencyclidine (PCP) Not Detected (NotDetected); THC/Cannabinoid Screen Not Detected (NotDetected); Tricyclic Screen Detected (NotDetected)
[2018-06-03] MEDS ORDERED: Azithromycin 500 MG VIAL ONE (07:20)
--- NOTE | 2018-06-03 08:06 | RAD ---
SINGLE VIEW CHEST: Date: 06/03/18 COMPARISON: 05/19/15. HISTORY: Fall from wheelchair with altered mental status. FINDINGS: Single view of the chest shows a normal sized cardiomediastinal silhouette. There is no evidence of c onsolidation, mass, or pleural effusion. The bones are unremarkable. IMPRESSION: No evidence of acute cardiopulmonary disease. POS: [facility]
[2018-06-03] MEDS ORDERED: Acetaminophen 325 MG TAB PO PRN (08:12)
[2018-06-03] MEDS ORDERED: Ipratropium Bromide 2.5 ml Neb NEB PRN (08:18)
[2018-06-03] MEDS ORDERED: Ondansetron ODT 4 MG TAB PO PRN (08:18)
[2018-06-03] MEDS ORDERED: Ondansetron PF 4 MG/2 ML Vial IVP PRN (08:18)
[2018-06-03] MEDS ORDERED: Senokot S 8.6-50 MG TAB PO PRN (08:18)
[2018-06-03] MEDS ORDERED: Guaifenesin DM 100-10/5 ML UDCUP PO PRN (08:18)
--- NOTE | 2018-06-03 08:45 | CT ---
PRELIMINARY REPORT/[facility]/EMERGENTY AFTER-HOURS PROCEDURE CT Head Without Contrast EXAM DATE/TIME: 06/03/2018 5:22 AM CLINICAL HISTORY: 72 years old, female; Injury or trauma; Fall; Initial encounter; Abrasion; Forehead; Patient HX: F72 presents to the ed via ems for evaluation S/P fall from wheelchair. Or staff report AMS; PT is typica lly a&o x4 but was acting altered, packing up her room at wi. Per ems, PT has small contusion above r eye TECHNIQUE: Axial computed tomography images of the head/brain without contrast. COMPARISON: No relevant prior studies available. FINDINGS: Brain: Volume loss and chronic small vessel ischemic change. No brain edema. No intracranial hemorrha ge. Ventricles: Normal. No ventriculomegaly. Bones/joints: Normal. No acute fracture. Sinuses: Normal as visualized. No acute sinusitis. Mastoid air cells: Normal as visualized. No mastoid effusion. Soft tissues: Right frontal scalp contusion. IMPRESSION: No acute brain findings. Thank you for allowing us to participate in the care of your patient. Dictated and Authenticated by: Jan Villalobos MD 06/03/2018 5:34 AM Central Time ([place] & [place]) FINAL REPORT HEAD CT WITHOUT CONTRAST: DATE: 06/03/2018. COMPARISON: 07/19/2008. HISTORY: Injury, trauma. FINDINGS: I agree with the preliminary [facility] report. The imaged paranasal sinuses and mastoid air cells are we ll aerated. There is no displaced calvarial fracture. There is soft tissue swelling superior and la teral to the right orbit. There is mild diffuse cerebral volume loss. There is hypodensity within t he white matter, evidence of small-vessel disease. IMPRESSION: Soft tissue swelling with no associated fracture or intracranial hemorrhage. POS: [facility]
[2018-06-03] MEDS ORDERED: Lactated Ringer's 500 ML IV SCH (09:00)
[2018-06-03] MEDS ORDERED: Carvedilol 3.125 MG TAB PO SCH (09:00)
[2018-06-03] MEDS ORDERED: DULoxetine 30 MG CAP PO SCH (09:00)
[2018-06-03 09:04] LABS: Troponin I Less than 0.010 ng/mL (< 0.028)
[2018-06-03 10:15] VITALS: BMI 22.4
[2018-06-03] MEDS: Aspirin 81 mg Enteric Coated Tablet PO SCH (11:35)
[2018-06-03] MEDS: Carvedilol 6.25 MG TAB PO SCH ×2 (11:35→21:02)
[2018-06-03] MEDS: DULoxetine 60 MG CAP PO SCH (11:35)
[2018-06-03] MEDS: Leflunomide 10 mg Tablet PO SCH (11:36)
[2018-06-03] MEDS: Enoxaparin Sodium 40 MG/0.4 ML SYRINGE SC SCH (11:36)
[2018-06-03 11:46] LABS: Troponin I Less than 0.010 ng/mL (< 0.028)
[2018-06-03] MEDS: Lactated Ringer's 1,000 ML IV SCH (11:46)
[2018-06-03] MEDS: Ipratropium Bromide 2.5 ml Neb NEB SCH ×2 (14:27→18:52)
--- NOTE | 2018-06-03 15:36 | HP ---
PRIMARY CARE PHYSICIAN: Migue Jimenez MD. CHIEF COMPLAINT/REASON FOR ADMISSION: "I fell." HISTORY OF PRESENT ILLNESS: Mrs. Palomino is a very pleasant 72-year-old female, familiar to [facility] from a recent admission, 05/11/2018 through 05/19/2018. At that time, she presented from home after sustaining a fall, diagnosed with left tibial plateau fracture, non operative. Placed in immobilizer, seen and evaluated by Orthopedics and Trauma team at that time. Ultimately discharged to rehabilitation at [facility]. Medical comorbidities include diagnosis of osteoporosis, rheumatoid arthritis, under the care of Dr. Ellsworth, previous transient ischemic attack in August 2017, previous history of migraine headache disorder, COPD on a background history of former tobacco dependence, and systolic congestive heart failure, with limited records review, from what I was able to discern, last ejection fraction documented in the chart at 20%. The patient's daughter, Ebonie, who is also a surrogate medical decision maker is present in the room during my evaluation, and helped to augment the history. The patient was brought to the emergency department from the [facility] last night after sustaining a fall from her wheelchair. There was no loss of consciousness. There was however some confusion present, which is different from her baseline. Ebonie recalls when the patient had a transient ischemic attack while visiting a friend in [place] in 2018, at that time had some confusion as well, the symptoms were also accompanied by slurring of speech. Based on the focal neurological deficit noted in 08/2017, she did receive tPA, with interval recovery during that episode. Ebonie notes that Ms. Palomino has had some difficulty with adjusting to the rehabilitation facility, specifically wishing that she was able to be in her home environment. The patient has some difficulty recalling what events precipitated her falling out of the wheelchair today. She is able to tell me she fell, striking the area just over the right side of her eye. She denies any pain at this time, her pain is currently controlled on oral Tylenol. She has had no nausea or vomiting. New symptoms include worsened cough, with interval productivity of green sputum, beginning approximately 4 to 5 days ago. She also reports some mild temperature elevation , low-grade. At home, Mrs. Palomino does not use oxygen. Here in the emergency department, her oxygen saturations are 92% on 2 L per nasal cannula. She is able to tell me she is in the [facility] Emergency Department, she is able to give me her full name and her daughter's full name. She is able to give me today's date. She does have some difficulty with relaying details of events overnight. Her recall for events in the more distant past appears more clear, she can relate the events over last spring during her hospital stay in [place]. She has had no focal deficit , specifically her speech and strength have been at her baseline. Her emergency room workup is notable for a CT of the head, compared to 2009. Soft tissue swelling was present over the right orbit, small vessel disease also noted as well as some cortical atrophy. No fracture, hemorrhage. Her laboratory work was notable for mild leukocytosis of 13,000, EKG notable for sinus tachycardia with left anterior fascicular block, rate of 115 beats per minute. Chest x-ray did not show any infiltrate. PAST MEDICAL HISTORY: 1. Congestive heart failure, last documented ejection fraction available for review was 20%. 2. Dyslipidemia. 3. Rheumatoid arthritis. 4. Osteoporosis. 5. Transient ischemic attack, August 2017. 6. History of migraine headache disorder. 7. Chronic obstructive pulmonary disease. 8. History of tobacco dependence, status post cessation 2013. PAST SURGICAL HISTORY: 1. Laminectomy, L3-L5 in 1993. 2. Hysterectomy. 3. Bilateral cataract surgery. FAMILY HISTORY: Positive for COPD in her mother, lung cancer in her father. Lung cancer and ovarian cancer in both of her sisters. SOCIAL HISTORY: She is a retired signals officer. She formerly smoked, cessation in 2013. No alcohol use presently or significant alcohol use in the past. No drug use. She is from [place], was living in [place] with her daughter prior to her hospitalization for the tibial plateau fracture and subsequent transition to rehabilitation. HOME MEDICATIONS: Presently in the process of verification; 1. Robitussin 100 mg per 5 mL p.o. p.r.n. cough. 2. Amitriptyline 25 mg p.o. at bedtime. 3. Lasix 40 mg p.o. daily. 4. Potassium 20 mEq p.o. daily. 5. Duloxetine 60 mg p.o. daily. 6. Leflunomide 20 mg p.o. daily. 7. Aspirin 81 mg p.o. daily. 8. Pulmicort nebulizer 0.5 mg, twice daily. 9. Lipitor 20 mg p.o. once daily. 10. Carvedilol 12.5 mg p.o. twice daily. 11. Nitroglycerin 0.4 mg sublingual p.r.n. ALLERGIES: LISTED TO CODEINE AND TO ALBUTEROL. WITH CODEINE, SHE GETS HEADACHE , WITH ALBUTEROL, SHE "GETS ITCHY AND WANTS TO JUMP OUT OF HER SKIN." REVIEW OF SYSTEMS: The patient and daughter note poor eating, poor oral intake lately. Reports appetite is just, in general, been poor. PHYSICAL EXAMINATION: VITAL SIGNS: Heart rate presently 115, regular. Blood pressure 120/75, presently with mild low-grade temperature elevation of 100.3. GENERAL: This is a pleasant female, lying in bed, presently 92% with 2 L of oxygen per nasal cannula. She is able to relate much of her history to me, does deferred her daughter for some additional details. HEENT: Eyes notable for anisocoria, following cataract surgery. No conjunctival injection. No scleral icterus. Extraocular movements are intact. Oropharynx is clear. No thrush. Uvula midline. Some slight swelling is present over her right eye as evidence of soft-tissue injury from her fall. NECK: Supple. Full range of motion. HEART: Mildly tachycardic, without distinct murmur. LUNGS: Rhonchi present, more prominent over the left mid and lower lung vasquez. Breath sounds somewhat distant. With deep breathing, expectorates significant volume of green sputum. ABDOMEN: Thin, soft, nontender, nondistended. EXTREMITIES: Immobilizer in place to her left lower extremity in the context of recent tibial plateau fracture. No significant lower extremity edema, right leg. I was able to examine. NEUROLOGIC: Able to move all extremities bilaterally into command. Her strength testing appears intact. Cerebellar testing, rapid alternating movement, somewhat slow to understand what was being asked of her, but once explained, able to perform study. [id number] testing unremarkable. No evidence of slurred speech. Cranial nerve testing grossly intact. Sensory testing intact. VASCULAR: Dorsalis pedis pulses 2+. LABORATORY/DATA REVIEW: Chest x-ray, no evidence of infiltrate, reviewed. CT head reviewed, also verified report, soft tissue swelling present over right orbit, some cortical atrophy in place, evidence of small-vessel ischemic disease noted, no evidence of intracranial bleed or fracture. Urinalysis unremarkable. White blood cell count 43200, hemoglobin 11.4, hematocrit 35.5, shows evidence of a left shift with 31% bands. Chemistry panel reviewed, BUN 14, creatinine 1.19, glucose 121, globulin 3.6, albumin 1.1. TSH was checked and was normal. Troponin negative. I personally reviewed her EKG, sinus tachycardia, left anterior fascicular block, 115 beats per minute. Blood gas was done, pH 7.42, pCO2 43, PO2 65. IMPRESSION: 1. Confusion/toxic metabolic encephalopathy, likely medically mediated in the context of decompensated chronic obstructive pulmonary disease/acute bronchitis. 2. Left tibial plateau fracture, 05/11/2018, presently with immobilizer, at inpatient rehabilitation at the [facility]. 3. History of congestive heart failure, at this time, appears mildly hypovolemic , last documented ejection fraction available for review of 20%. 4. History of rheumatoid arthritis on chronic disease modifying regimen. 5. Evidence of small-vessel ischemic disease on CT, without evidence of acute fracture or hemorrhage. 6. Previous history of neurologic event/transient ischemic attack, presenting with slurred speech, with full recovery, in August 2017, on statin and aspirin regimen. PLAN/RECOMMENDATIONS: 1. Pulmonary-pulmonary optimization with supplemental oxygen, IV steroids, nebulized steroids, and Atrovent. Empiric oral antibiotic coverage also added. 2. Cardiology-cardiac biomarkers are unremarkable. Appears slightly dry, mild sinus tachycardia, and low-grade temperature elevation. Lactated Ringer's 500 mL, at 50 mL/h, then saline lock. I have placed her home Lasix and potassium on hold for today, this may need to be resumed tomorrow. 3. Orthopedic-nonweightbearing left leg, unchanged, will need ongoing rehabilitative care. Place amitriptyline on hold, this may increase risk of falls, also can contribute to orthostasis particularly in elderly. 4. DVT prophylaxis-Lovenox. 5. Fluids, electrolytes, nutrition. Heart healthy diet, IV fluids, as above, then saline lock. 6. Neurology-neuro check every shift, suspect is interval development of confusion is medically mediated in the context of illness with chronic obstructive pulmonary disease, as well as a history of recent hospital stay, rehabilitation placement , and on a background of chronic small vessel ischemic disease. CODE STATUS: I discussed code status with the patient as well as her daughter, Ebonie, surrogate medical decision maker in the room. The patient relates a previous discussion of do not resuscitate. I have added this order to our chart. Overall condition is high risk, placed on observation status at this time with further recommendations pending course. Job ID: [id number] MTDD
[2018-06-03] MEDS: Budesonide 0.5 MG/2 ML NEB NEB SCH (18:53)
[2018-06-03] MEDS: Atorvastatin Calcium 20 MG TAB PO SCH (21:02)
[2018-06-04 05:29] LABS: #Lymphocytes 1.9 thou/uL (1.20-3.40); #Monocytes 0.7 thou/uL (0.11-0.59); #Neutrophils 7.6 thou/uL (1.40-6.50); %Basophils 0.1 % (0.0-1.0); %Eosinophils 0.1 % (0.0-10.0); %Lymphocytes 18.6 % (21.0-51.0); %Monocytes 6.7 % (0.0-10.0); %Neutrophils 74.4 % (42.0-75.0); Hemoglobin 9.1 g/dL (12.0-16.0); Mean Corpuscular HGB CONC 32.2 g/dL (32.0-36.0); Mean Corpuscular Hemoglobin 29.3 pg (27.0-31.0); Mean Platelet Volume 7.6 fL (7.4-10.4); Platelet Count 283 thou/uL (130-400); Red Blood Cell (RBC) Count 3.12 mill/uL (4.20-5.40); White Blood Cell (WBC) Count 10.3 thou/uL (4.8-10.8)
[2018-06-04 05:52] LABS: Anion Gap 11 mmol/L (10-20); BUN (Urea Nitrogen) 14 mg/dL (9.8-20.1); Calc. Creatinine Clearance 60 mL/min (70-130); Carbon Dioxide 26 mmol/L (23-31); Chloride 106 mmol/L (98-107); Estimated GFR-MDRD 85; Glucose 109 mg/dL (83-110); Potassium 4.1 mmol/L (3.5-5.1); Sodium 139 mmol/L (136-145)
[2018-06-04] MEDS: Ipratropium Bromide 2.5 ml Neb NEB SCH ×3 (07:01→19:04)
[2018-06-04] MEDS: Budesonide 0.5 MG/2 ML NEB NEB SCH ×2 (07:05→19:07)
[2018-06-04] MEDS: Aspirin 81 mg Enteric Coated Tablet PO SCH (09:56)
[2018-06-04] MEDS: Carvedilol 6.25 MG TAB PO SCH ×2 (09:56→21:52)
[2018-06-04] MEDS: Leflunomide 10 mg Tablet PO SCH (09:56)
[2018-06-04] MEDS: Enoxaparin Sodium 40 MG/0.4 ML SYRINGE SC SCH (09:57)
[2018-06-04] MEDS: DULoxetine 60 MG CAP PO SCH (09:57)
[2018-06-04] MEDS: Lactated Ringer's 1,000 ML IV SCH (09:57)
--- NOTE | 2018-06-04 11:36 | PDOC.PN ---
- Subjective Encounter Start Date: 06/04/18 (f/u copd exacerbation) Encounter Start Time: 11:34 Subjective: Pt without complaintsthismorning. Reports breathing is comfortable. -: denies chest pain/n/v - Objective Resuscitation Status - Order Detail: 06/03/18 08:18 Resuscitation Status Routine Resuscitation Status: DNAR: NO Resuscitation Discussed with: Patient and daughter Ebonie Vital Signs & Weight: Vital Signs (12 hours) Temp Pulse Resp BP BP Pulse Ox 06/04/18 09:56 149/67 H 06/04/18 07:34 97.8 F 81 18 144/67 H 96 06/04/18 07:05 100 16 98 06/04/18 07:01 100 16 97 06/04/18 04:46 97.9 F 85 17 164/81 H 98 Weight Weight 135 lb 1 oz I&O: 06/03/18 06/04/18 06/05/18 06:59 06:59 06:59 Intake Total 880 Output Total 700 Balance 180 Result Diagrams: 06/04/18 13:53 06/04/18 04:28 EKG Reviewed by me: Yes (tele - [id number]) Phys Exam - Physical Examination Constitutional: NAD Respiratory: no wheezing, no rales, no rhonchi fair air movement Cardiovascular: RRR, no significant murmur Gastrointestinal: soft, non-tender, positive bowel sounds Musculoskeletal: no edema left knee immobilizer in place Psychiatric: normal affect Skin: no rash Dx/Plan (1) Encephalopathy Code(s): G93.40 - ENCEPHALOPATHY, UNSPECIFIED Status: Acute Comment: toxic metabolic (2) COPD (chronic obstructive pulmonary disease) with acute bronchitis Code(s): J44.0 - CHRONIC OBSTRUCTIVE PULMON DISEASE W ACUTE LOWER RESP INFCT; J20.9 - ACUTE BRONCHITIS, UNSPECIFIED Status: Acute (3) Encephalopathy Code(s): G93.40 - ENCEPHALOPATHY, UNSPECIFIED Status: Acute (4) Chronic systolic heart failure Code(s): I50.22 - CHRONIC SYSTOLIC (CONGESTIVE) HEART FAILURE Status: Chronic (5) Tibia fracture Code(s): S82.209A - UNSP FRACTURE OF SHAFT OF UNSP TIBIA, INIT FOR CLOS FX Status: Acute Qualifiers: Fracture type: closed Laterality: left (6) Rheumatoid arthritis Code(s): M06.9 - RHEUMATOID ARTHRITIS, UNSPECIFIED Status: Chronic Qualifiers: Rheumatoid factor presence: unspecified presence Laterality: bilateral (7) Dyslipidemia Code(s): E78.5 - HYPERLIPIDEMIA, UNSPECIFIED Status: Chronic (8) Osteoporosis Code(s): M81.0 - AGE-RELATED OSTEOPOROSIS W/O CURRENT PATHOLOGICAL FRACTURE Status: Chronic Qualifiers: Osteoporosis type: unspecified - Plan * Urine retention - jane in place from overnight,consult Urology for longer termrecommendations * COPD - continue steroids - change to prednisone tomorrow, wean oxygen, change to 500 mg levaquin daily for acute bronchitis with copd exacerbation * CHFsystolic, compensated. d/c IVF. Resume lasix and potassium tomorrow * Anemia - uncertain ppt for this and lower than last hosp. * d/c enoxaparin * hold aspirin * stool occult * q6h h/h today and recheck cbc in am * continue pt * encepahlopathy - likely secondary to acute illness, transitions in care and possible baseline cognitive changes. Monitor this. * * dvt prophy - scd to right leg. Given tibial plateau fx unable to place on left leg * gi prophy - not indicated * homemeds reconcilled * * code status - dnar * * reviewed plan of care iwth patient and RN,no questionsat end of eval. * pt remains at high risk given age,co-morbidities and current presentation * * I'm concerned about the safety and stability of this patient and changing to inpatient statusdue to persistence of encephalopathy, drop in hemoglobin, and the copd exacerbation.
[2018-06-04 14:12] LABS: Hemoglobin 10.4 g/dL (12.0-16.0)
[2018-06-04 19:13] LABS: Hemoglobin 9.7 g/dL (12.0-16.0)
[2018-06-04] MEDS: Atorvastatin Calcium 20 MG TAB PO SCH (21:52)
[2018-06-05 05:44] LABS: #Lymphocytes 2.6 thou/uL (1.20-3.40); #Monocytes 0.7 thou/uL (0.11-0.59); #Neutrophils 8.1 thou/uL (1.40-6.50); %Eosinophils 0.1 % (0.0-10.0); %Lymphocytes 22.8 % (21.0-51.0); %Monocytes 6.1 % (0.0-10.0); Hemoglobin 9.4 g/dL (12.0-16.0); Mean Corpuscular HGB CONC 32.5 g/dL (32.0-36.0); Mean Corpuscular Hemoglobin 29.3 pg (27.0-31.0); Mean Corpuscular Volume 90.1 fL (78.0-98.0); Mean Platelet Volume 6.9 fL (7.4-10.4); Platelet Count 312 thou/uL (130-400); White Blood Cell (WBC) Count 11.4 thou/uL (4.8-10.8)
[2018-06-05 06:01] LABS: Anion Gap 10 mmol/L (10-20); BUN (Urea Nitrogen) 15 mg/dL (9.8-20.1); Calc. Creatinine Clearance 51 mL/min (70-130); Calcium 9.2 mg/dL (7.8-10.44); Carbon Dioxide 28 mmol/L (23-31); Chloride 106 mmol/L (98-107); Estimated GFR-MDRD 71; Glucose 90 mg/dL (83-110); Potassium 3.8 mmol/L (3.5-5.1); Sodium 140 mmol/L (136-145)
[2018-06-05] MEDS: Budesonide 0.5 MG/2 ML NEB NEB SCH ×2 (07:05→18:39)
[2018-06-05] MEDS: Ipratropium Bromide 2.5 ml Neb NEB SCH ×3 (07:05→18:38)
[2018-06-05] MEDS: DULoxetine 60 MG CAP PO SCH (08:14)
[2018-06-05] MEDS: Potassium Chloride 20 MEQ TAB PO SCH (08:15)
[2018-06-05] MEDS: Leflunomide 10 mg Tablet PO SCH (08:15)
[2018-06-05] MEDS: Furosemide 40 MG TAB PO SCH (08:15)
[2018-06-05] MEDS: Carvedilol 6.25 MG TAB PO SCH ×2 (08:58→20:30)
--- NOTE | 2018-06-05 09:31 | PDOC.PN ---
- Subjective Encounter Start Date: 06/05/18 (f/u copd exacerbation) Encounter Start Time: 09:29 Subjective: Pt feels like she can breathe deeper today. Some coughing, not -: productive. No bm for fecal occult. Requesting her home -: amitriptyline - Objective Resuscitation Status - Order Detail: 06/03/18 08:18 Resuscitation Status Routine Resuscitation Status: DNAR: NO Resuscitation Discussed with: Patient and daughter Ebonie Vital Signs & Weight: Vital Signs (12 hours) Temp Pulse Resp BP Pulse Ox 06/05/18 07:47 97.7 F 83 18 167/86 H 94 L 06/05/18 07:05 90 18 94 L 06/05/18 04:00 98.3 F 87 17 149/73 H 95 06/05/18 00:11 98 Weight Admit Weight 135 lb 1.6 oz Weight 135 lb 1 oz I&O: 06/04/18 06/05/18 06/06/18 06:59 06:59 06:59 Intake Total 880 801 Output Total 700 800 Balance 180 1 Result Diagrams: 06/05/18 05:23 06/05/18 05:23 EKG Reviewed by me: Yes (tele - sinus 80's, occ pvc's) Phys Exam - Physical Examination Constitutional: NAD Respiratory: no rales, no rhonchi some wheezing, fair air movement Cardiovascular: RRR, no significant murmur Gastrointestinal: soft, non-tender, no distention, positive bowel sounds Musculoskeletal: no edema left leg in brace Neurological: non-focal Psychiatric: normal affect Deviation from normal: ecchymosis around right eye c/w trauma that brought pt to hospital Dx/Plan (1) Encephalopathy Code(s): G93.40 - ENCEPHALOPATHY, UNSPECIFIED Status: Acute Comment: toxic metabolic (2) COPD (chronic obstructive pulmonary disease) with acute bronchitis Code(s): J44.0 - CHRONIC OBSTRUCTIVE PULMON DISEASE W ACUTE LOWER RESP INFCT; J20.9 - ACUTE BRONCHITIS, UNSPECIFIED Status: Acute (3) Encephalopathy Code(s): G93.40 - ENCEPHALOPATHY, UNSPECIFIED Status: Acute (4) Chronic systolic heart failure Code(s): I50.22 - CHRONIC SYSTOLIC (CONGESTIVE) HEART FAILURE Status: Chronic (5) Tibia fracture Code(s): S82.209A - UNSP FRACTURE OF SHAFT OF UNSP TIBIA, INIT FOR CLOS FX Status: Acute Qualifiers: Fracture type: closed Laterality: left (6) Rheumatoid arthritis Code(s): M06.9 - RHEUMATOID ARTHRITIS, UNSPECIFIED Status: Chronic Qualifiers: Rheumatoid factor presence: unspecified presence Laterality: bilateral (7) Dyslipidemia Code(s): E78.5 - HYPERLIPIDEMIA, UNSPECIFIED Status: Chronic (8) Osteoporosis Code(s): M81.0 - AGE-RELATED OSTEOPOROSIS W/O CURRENT PATHOLOGICAL FRACTURE Status: Chronic Qualifiers: Osteoporosis type: unspecified - Plan * * Urine retention - awaiting Urology recommendations, d/c jane cath and bladder scan after voiding - at least 4 times per day. i/o cath if greater than 200 ml * COPD - appears improved, continue nebs/change steroids to prednisone, continue levaquin for planned 5 day course - today is day 3. * CHFsystolic, compensated, lasix and potassium restarted today * Anemia - stable but declined since admission. * hold aspirin * stool occult * monitor for blood loss * continue PT * resume amitriptyline - pt reports migraine prophylaxis * encepahlopathy - likely secondary to acute illness, transitions in care and possible baseline cognitive changes. This is stable * transfer to medical, anticipate pt can be discharged back to the [facility] tomorrow * * dvt prophy - scd to right leg. Given tibial plateau fx unable to place on left leg * gi prophy - not indicated * * code status - dnar * * reviewed plan of care with patient and RN,no questions at end of eval.
[2018-06-05] MEDS: Docusate 100 MG CAP PO SCH (20:30)
[2018-06-05] MEDS: Atorvastatin Calcium 20 MG TAB PO SCH (20:30)
[2018-06-05] MEDS: Amitriptyline HCl 100 MG TAB PO SCH (20:31)
[2018-06-05] MEDS: Polyethylene Glycol 3350 17 GM Packet PO SCH (20:38)
[2018-06-06 07:21] LABS: #Lymphocytes 3.2 thou/uL (1.20-3.40); #Monocytes 0.8 thou/uL (0.11-0.59); #Neutrophils 6.6 thou/uL (1.40-6.50); %Basophils 0.1 % (0.0-1.0); %Eosinophils 0.3 % (0.0-10.0); %Lymphocytes 30.2 % (21.0-51.0); %Monocytes 7.9 % (0.0-10.0); %Neutrophils 61.6 % (42.0-75.0); Hemoglobin 10.4 g/dL (12.0-16.0); Mean Corpuscular HGB CONC 31.5 g/dL (32.0-36.0); Mean Corpuscular Hemoglobin 28.4 pg (27.0-31.0); Mean Corpuscular Volume 90.2 fL (78.0-98.0); Mean Platelet Volume 7.3 fL (7.4-10.4); Platelet Count 369 thou/uL (130-400); RBC Distribution Width 12.1 % (11.5-14.5); Red Blood Cell (RBC) Count 3.65 mill/uL (4.20-5.40); White Blood Cell (WBC) Count 10.7 thou/uL (4.8-10.8)
[2018-06-06] MEDS: Ipratropium Bromide 2.5 ml Neb NEB SCH ×3 (07:31→18:58)
[2018-06-06] MEDS: Budesonide 0.5 MG/2 ML NEB NEB SCH ×2 (07:33→19:02)
[2018-06-06] MEDS: Potassium Chloride 20 MEQ TAB PO SCH (09:07)
[2018-06-06] MEDS: Leflunomide 10 mg Tablet PO SCH (09:07)
[2018-06-06] MEDS: Docusate 100 MG CAP PO SCH ×2 (09:07→20:19)
[2018-06-06] MEDS: Carvedilol 6.25 MG TAB PO SCH ×2 (09:07→20:19)
[2018-06-06] MEDS: predniSONE 20 MG TAB PO SCH (09:07)
[2018-06-06] MEDS: Furosemide 40 MG TAB PO SCH (09:08)
[2018-06-06] MEDS: DULoxetine 60 MG CAP PO SCH (09:08)
--- NOTE | 2018-06-06 10:21 | PDOC.PN ---
- Subjective Encounter Start Date: 06/06/18 Encounter Start Time: 11:15 Subjective: Patient back to baseling mental status. No complaints. No SOB. No -: pain. - Objective Resuscitation Status - Order Detail: 06/03/18 08:18 Resuscitation Status Routine Resuscitation Status: DNAR: NO Resuscitation Discussed with: Patient and daughter Ebonie LEONARD Reviewed: Yes Vital Signs & Weight: Vital Signs (12 hours) Temp Pulse Resp BP BP Pulse Ox 06/06/18 09:07 162/95 H 06/06/18 08:00 97.8 F 83 18 157/90 H 99 06/06/18 07:31 85 16 93 L 06/06/18 04:00 98.4 F 83 16 148/86 H 96 06/06/18 00:00 98.3 F 92 18 112/71 96 Weight Admit Weight 135 lb 1.6 oz Weight 135 lb 1 oz I&O: 06/05/18 06/06/18 06/07/18 06:59 06:59 06:59 Intake Total 801 Output Total 800 600 Balance 1 -600 Result Diagrams: 06/06/18 06:06 06/05/18 05:23 Phys Exam - Physical Examination Constitutional: NAD HEENT: moist MMs Respiratory: no wheezing, no rales, no rhonchi Cardiovascular: RRR Gastrointestinal: soft, non-tender, positive bowel sounds left knee immobilizer in place Neurological: non-focal, moves all 4 limbs Psychiatric: normal affect, A&O x 3 Dx/Plan (1) COPD (chronic obstructive pulmonary disease) with acute bronchitis Code(s): J44.0 - CHRONIC OBSTRUCTIVE PULMON DISEASE W ACUTE LOWER RESP INFCT; J20.9 - ACUTE BRONCHITIS, UNSPECIFIED Status: Acute (2) Encephalopathy Code(s): G93.40 - ENCEPHALOPATHY, UNSPECIFIED Status: Resolved (3) Tibia fracture Code(s): S82.209A - UNSP FRACTURE OF SHAFT OF UNSP TIBIA, INIT FOR CLOS FX Status: Acute Qualifiers: Fracture type: closed Laterality: left Comment: In immobilizer (4) Chronic systolic heart failure Code(s): I50.22 - CHRONIC SYSTOLIC (CONGESTIVE) HEART FAILURE Status: Chronic (5) Dyslipidemia Code(s): E78.5 - HYPERLIPIDEMIA, UNSPECIFIED Status: Chronic (6) Osteoporosis Code(s): M81.0 - AGE-RELATED OSTEOPOROSIS W/O CURRENT PATHOLOGICAL FRACTURE Status: Chronic Qualifiers: Osteoporosis type: unspecified (7) Rheumatoid arthritis Code(s): M06.9 - RHEUMATOID ARTHRITIS, UNSPECIFIED Status: Chronic Qualifiers: Rheumatoid factor presence: unspecified presence Laterality: bilateral (8) Urinary retention Code(s): R33.9 - RETENTION OF URINE, UNSPECIFIED Status: Acute Comment: Dr. Asher consulted over the weekend, but didn't see because not much residual that day. Residuals have been in excess of 300mL since then. Will have nurse call Dr. Asher with current residuals for recommendations prior to d/c back to the [facility]. - Plan cont current plan of care, continue antibiotics, PT/OT, respiratory therapy Can go back to the [facility] once deal with urinary retention -: 2 more days of antibiotics * . - Discharge Day Encounter end time: 11:30
[2018-06-06] MEDS: Amitriptyline HCl 100 MG TAB PO SCH (20:19)
[2018-06-06] MEDS: Atorvastatin Calcium 20 MG TAB PO SCH (20:20)
[2018-06-06] MEDS: Polyethylene Glycol 3350 17 GM Packet PO SCH (20:20)
[2018-06-07] MEDS: Ipratropium Bromide 2.5 ml Neb NEB SCH ×3 (08:56→19:10)
[2018-06-07] MEDS: Budesonide 0.5 MG/2 ML NEB NEB SCH ×2 (08:57→19:09)
[2018-06-07] MEDS: Leflunomide 10 mg Tablet PO SCH (09:17)
[2018-06-07] MEDS: DULoxetine 60 MG CAP PO SCH (09:17)
[2018-06-07] MEDS: Potassium Chloride 20 MEQ TAB PO SCH (09:17)
[2018-06-07] MEDS: predniSONE 20 MG TAB PO SCH (09:17)
[2018-06-07] MEDS: Furosemide 40 MG TAB PO SCH (09:18)
[2018-06-07] MEDS: Aspirin 81 mg Enteric Coated Tablet PO SCH (09:18)
[2018-06-07] MEDS: Docusate 100 MG CAP PO SCH ×2 (09:24→21:26)
--- NOTE | 2018-06-07 10:02 | PDOC.PN ---
- Subjective Encounter Start Date: 06/07/18 Encounter Start Time: 11:00 Subjective: Patient without complaint this morning. Got up with PT. No pain. No -: confusion. - Objective Resuscitation Status - Order Detail: 06/03/18 08:18 Resuscitation Status Routine Resuscitation Status: DNAR: NO Resuscitation Discussed with: Patient and daughter Ebonie LEONARD Reviewed: Yes Vital Signs & Weight: Vital Signs (12 hours) Temp Pulse Resp BP Pulse Ox 06/07/18 08:56 87 18 06/07/18 08:00 98.2 F 87 18 130/83 94 L 06/07/18 04:00 98.3 F 87 16 136/91 H 94 L 06/07/18 00:00 97.9 F 82 16 107/78 95 Weight Admit Weight 135 lb 1.6 oz Weight 135 lb 1 oz I&O: 06/06/18 06/07/18 06/08/18 06:59 06:59 06:59 Intake Total 720 Output Total 600 Balance -600 720 Result Diagrams: 06/06/18 06:06 06/05/18 05:23 Phys Exam - Physical Examination Constitutional: NAD HEENT: moist MMs Respiratory: no wheezing, no rales, no rhonchi Cardiovascular: RRR, no significant murmur Gastrointestinal: soft, positive bowel sounds Left knee imobilizer in place Neurological: non-focal, moves all 4 limbs Psychiatric: normal affect, A&O x 3 Dx/Plan (1) COPD (chronic obstructive pulmonary disease) with acute bronchitis Code(s): J44.0 - CHRONIC OBSTRUCTIVE PULMON DISEASE W ACUTE LOWER RESP INFCT; J20.9 - ACUTE BRONCHITIS, UNSPECIFIED Status: Acute (2) Encephalopathy Code(s): G93.40 - ENCEPHALOPATHY, UNSPECIFIED Status: Resolved (3) Tibia fracture Code(s): S82.209A - UNSP FRACTURE OF SHAFT OF UNSP TIBIA, INIT FOR CLOS FX Status: Acute Qualifiers: Fracture type: closed Laterality: left Comment: In immobilizer (4) Chronic systolic heart failure Code(s): I50.22 - CHRONIC SYSTOLIC (CONGESTIVE) HEART FAILURE Status: Chronic (5) Dyslipidemia Code(s): E78.5 - HYPERLIPIDEMIA, UNSPECIFIED Status: Chronic (6) Osteoporosis Code(s): M81.0 - AGE-RELATED OSTEOPOROSIS W/O CURRENT PATHOLOGICAL FRACTURE Status: Chronic Qualifiers: Osteoporosis type: unspecified (7) Rheumatoid arthritis Code(s): M06.9 - RHEUMATOID ARTHRITIS, UNSPECIFIED Status: Chronic Qualifiers: Rheumatoid factor presence: unspecified presence Laterality: bilateral (8) Urinary retention Code(s): R33.9 - RETENTION OF URINE, UNSPECIFIED Status: Acute Comment: Dr. Asher stated no need to I&O caths for this level of retention at this time. Ok to d/c and f/u in his office as an outpatient. - Plan cont current plan of care D/C to the [facility] once insurance approval to return to SNF. * . - Discharge Day Encounter end time: 11:10
[2018-06-07] MEDS: Carvedilol 6.25 MG TAB PO SCH ×2 (10:57→21:26)
[2018-06-07] MEDS: Atorvastatin Calcium 20 MG TAB PO SCH (21:26)
[2018-06-07] MEDS: Polyethylene Glycol 3350 17 GM Packet PO SCH (21:26)
[2018-06-07] MEDS: Amitriptyline HCl 100 MG TAB PO SCH (21:29)
[2018-06-08] MEDS: Ipratropium Bromide 2.5 ml Neb NEB SCH ×3 (06:40→19:25)
[2018-06-08] MEDS: Budesonide 0.5 MG/2 ML NEB NEB SCH ×2 (06:42→19:26)
[2018-06-08] MEDS: predniSONE 20 MG TAB PO SCH (08:18)
[2018-06-08] MEDS: Carvedilol 6.25 MG TAB PO SCH ×2 (08:18→21:44)
[2018-06-08] MEDS: Leflunomide 10 mg Tablet PO SCH (08:18)
[2018-06-08] MEDS: Potassium Chloride 20 MEQ TAB PO SCH (08:19)
[2018-06-08] MEDS: DULoxetine 60 MG CAP PO SCH (08:19)
[2018-06-08] MEDS: Aspirin 81 mg Enteric Coated Tablet PO SCH (08:19)
[2018-06-08] MEDS: Furosemide 40 MG TAB PO SCH (08:19)
[2018-06-08] MEDS: Docusate 100 MG CAP PO SCH ×2 (08:19→21:44)
--- NOTE | 2018-06-08 11:07 | PQF ---
CLINICAL DOCUMENTATION IMPROVEMENT CLARIFICATION FORM: ICD-10 Updated PLEASE DO AN ADDENDUM TO THE PROGRESS NOTE WITH ANY DOCUMENTATION UPDATES OR ADDITIONS AND CARRY THROUGH TO DC SUMMARY. THANK YOU. DATE: 06/08/18 ATTN : DR. MOSS Please exercise your independent, professional judgment in responding to the clarification form. Clinical indicators are provided on the bottom of this form for your review Please check appropriate box(es): [ X ] Sepsis due to: (Pna, UTI, gangrenous gall bladder, etc.) ___COPD exac with acute bronchitis Due to: [ ] Device (please specify) [ ] Implant [ ] Graft [ ] Infusion [ ] SIRS due to non-infectious process (please specify etiology) [ ] with organ dysfunction [ ] without organ dysfunction [ ] Severe sepsis with acute organ dysfunction of: (Examples: respiratory failure, encephalopathy, acute kidney failure, other) [ ] Septic Shock [ ] Localized infection without sepsis [ ] Other diagnosis [ ] Unable to determine In addition, please specify: Present on Admission (POA): [ X ] Yes [ ] No [ ] Unable to determine For continuity of documentation, please document condition throughout progress notes and discharge summary. Thank You. CLINICAL INDICATORS - SIGNS / SYMPTOMS / LABS ER NOTE: TEMP 100.3 HR 116 "AMS" WBC 13.2 BANDS 31% RISKS: PER UA - SMALL LEUKOCYTE ESTERASE, 1+ BACTERIA URINARY RETENTION COPD EXACERBATION WITH ACUTE BRONCHITIS TREATMENT: IV AZITHROMYCIN (ER) IV FLUIDS (ER-06/04) PO LEVAQUIN (06/03-PRESENT) BLOOD CULTURES (This form is maintained as a part of the permanent medical record) 2014 [employer]. All Rights Reserved [email or web address] Office: [phone] [facility]
[2018-06-08] MEDS: Atorvastatin Calcium 20 MG TAB PO SCH (21:42)
[2018-06-08] MEDS: Amitriptyline HCl 100 MG TAB PO SCH (21:43)
[2018-06-08] MEDS: Polyethylene Glycol 3350 17 GM Packet PO SCH (21:45)
[2018-06-09] MEDS: Ipratropium Bromide 2.5 ml Neb NEB SCH (07:59)
[2018-06-09] MEDS: Budesonide 0.5 MG/2 ML NEB NEB SCH (08:01)
--- NOTE | 2018-06-09 08:10 | PDOC.PN ---
- Subjective Encounter Start Date: 06/09/18 Encounter Start Time: 10:20 Subjective: Patient feeling fine today. States she doesn't think she got up with PT -: yesterday. No complaints. - Objective Resuscitation Status - Order Detail: 06/03/18 08:18 Resuscitation Status Routine Resuscitation Status: DNAR: NO Resuscitation Discussed with: Patient and daughter Eboine LEONARD Reviewed: Yes Vital Signs & Weight: Vital Signs (12 hours) Pulse Resp BP BP Pulse Ox 06/09/18 07:59 101 H 16 95 06/08/18 21:44 100/62 06/08/18 21:41 104 H 100/62 06/08/18 20:40 94 L Weight Admit Weight 135 lb 1.6 oz Weight 135 lb 1 oz I&O: 06/08/18 06/09/18 06/10/18 06:59 06:59 06:59 Intake Total 480 Balance 480 Result Diagrams: 06/06/18 06:06 06/05/18 05:23 Phys Exam - Physical Examination Constitutional: NAD HEENT: moist MMs Respiratory: no wheezing, no rales, no rhonchi Cardiovascular: RRR, no significant murmur Gastrointestinal: soft, positive bowel sounds left knee immobilizer in place Neurological: non-focal, moves all 4 limbs Psychiatric: normal affect, A&O x 3 Dx/Plan (1) COPD (chronic obstructive pulmonary disease) with acute bronchitis Code(s): J44.0 - CHRONIC OBSTRUCTIVE PULMON DISEASE W ACUTE LOWER RESP INFCT; J20.9 - ACUTE BRONCHITIS, UNSPECIFIED Status: Resolved Comment: antibiotics and steroid course completed (2) Sepsis Code(s): A41.9 - SEPSIS, UNSPECIFIED ORGANISM Status: Resolved Comment: present on admission, now resolved (3) Encephalopathy Code(s): G93.40 - ENCEPHALOPATHY, UNSPECIFIED Status: Resolved (4) Tibia fracture Code(s): S82.209A - UNSP FRACTURE OF SHAFT OF UNSP TIBIA, INIT FOR CLOS FX Status: Acute Qualifiers: Fracture type: closed Laterality: left Comment: In immobilizer (5) Chronic systolic heart failure Code(s): I50.22 - CHRONIC SYSTOLIC (CONGESTIVE) HEART FAILURE Status: Chronic (6) Dyslipidemia Code(s): E78.5 - HYPERLIPIDEMIA, UNSPECIFIED Status: Chronic (7) Osteoporosis Code(s): M81.0 - AGE-RELATED OSTEOPOROSIS W/O CURRENT PATHOLOGICAL FRACTURE Status: Chronic Qualifiers: Osteoporosis type: unspecified (8) Rheumatoid arthritis Code(s): M06.9 - RHEUMATOID ARTHRITIS, UNSPECIFIED Status: Chronic Qualifiers: Rheumatoid factor presence: unspecified presence Laterality: bilateral (9) Urinary retention Code(s): R33.9 - RETENTION OF URINE, UNSPECIFIED Status: Acute Comment: Dr. Asher stated no need to I&O caths for this level of retention at this time. Ok to d/c and f/u in his office as an outpatient. - Plan cont current plan of care, PT/OT D/c to SNF today * . - Discharge Day Encounter end time: 10:30
[2018-06-09] MEDS: Potassium Chloride 20 MEQ TAB PO SCH (08:35)
[2018-06-09] MEDS: predniSONE 20 MG TAB PO SCH (08:35)
[2018-06-09] MEDS: Carvedilol 6.25 MG TAB PO SCH (08:36)
[2018-06-09] MEDS: Aspirin 81 mg Enteric Coated Tablet PO SCH (08:37)
[2018-06-09] MEDS: DULoxetine 60 MG CAP PO SCH (08:37)
[2018-06-09] MEDS: Furosemide 40 MG TAB PO SCH (08:37)
[2018-06-09] MEDS: Leflunomide 10 mg Tablet PO SCH (08:38)
[2018-06-09] MEDS: Docusate 100 MG CAP PO SCH (08:39)
[2018-06-09 12:05] VITALS: BP 105/69; TEMP 98.5
--- NOTE | 2018-06-10 04:58 | DIS ---
DATE OF ADMISSION: 06/03/2018 DATE OF DISCHARGE: 06/09/2018 REASON FOR ADMISSION: Metabolic encephalopathy. DIAGNOSES AT DISCHARGE: 1. Sepsis, present on admission, now resolved. 2. Chronic obstructive pulmonary disease with acute bronchitis. 3. Metabolic encephalopathy, resolved. 4. Chronic systolic congestive heart failure. 5. Recent tibial fracture, getting rehabilitation. 6. Dyslipidemia. 7. Osteoporosis. 8. Rheumatoid arthritis. 9. Urinary retention. PROCEDURES: CT of the brain showing volume loss and chronic small-vessel ischemic change, but no edema, no intracranial hemorrhage, no acute abnormalities. She did have some soft tissues swelling and right frontal scalp contusion. CONSULTATIONS: Urology, Dr. Asher. SUMMARY OF HOSPITAL COURSE: This is a 72-year-old female, recently in [facility] for a fall with resulting left tibial plateau fracture, non operative. She was sent to [facility] for rehabilitation and after being placed in left knee immobilizer by the Orthopedics and trauma team. On the day of admission, the patient fell out of her wheelchair. She struck the area just above her right eye. She was not able really remember the fall. She had had some mild temperature elevations and some mild confusion at the rehab. This confusion was coming and going, but not severe. The patient was admitted to the hospital. She had tachycardia, leukocytosis, and evidence of COPD exacerbation from acute bronchitis infection given her sepsis diagnosis as well. She was noted to be mildly hypovolemic, not in exacerbation of her chronic congestive heart failure. The patient was admitted to the hospital. She was given gentle fluids. She was given antibiotics. She was also given steroids for the COPD exacerbation. She improved markedly during her hospitalization and cleared completely from mental standpoint. Back to her baseline, she does have some mild cognitive decline from age at baseline. The patient did have some mild urinary retention in the hospital. Dr. Asher was consulted and it turned out that this did not need to be taken care at the hospital nor did it need intermittent catheterizations as it was not a large amount, it was just 200 mL to 300 mL of urine. On the day of discharge, the patient was feeling much better. She had completed her courses of steroid and antibiotics which have been discontinued, and she is being discharged back to [facility]. DISCHARGE MANAGEMENT: Discharged back to [facility] for physical therapy and occupational therapy. ACTIVITY: As tolerated. DIET: Healthy heart, fluid-restricted, low-sodium diet. MEDICATIONS: 1. Amitriptyline 150 mg at night. 2. Aspirin 81 mg daily. 3. Atorvastatin 20 mg at night. 4. Pulmicort neb solution 0.5 mg inhaled b.i.d. 5. Carvedilol 12.5 mg twice a day. 6. Duloxetine 60 mg daily. 7. Breo Ellipta 200/25 mcg 1 inhalation daily. 8. Furosemide 40 mg daily. 9. Ibandronate sodium every 30 days. 10. Leflunomide 20 mg daily. 11. Nitroglycerin 0.4 mg as needed for chest pain. 12. Potassium chloride 20 mEq daily. 13. Spiriva 18 mcg inhaled daily. FOLLOWUP: The patient is to follow up with Dr. Asher in 7 days; with primary care physician, Dr. Jimenez as needed; and with Dr. Kee as previously scheduled. Job ID: [id number]
== END 2018-06-09 12:32 | DRG 871 ==
LOC: ERS 04:54 → 2NO 07:48 → OBSVTOIN 07:48 → T4-B 06-05 12:47
PROVIDERS: ADMIT Internal Medicine; ATTEND Internal Medicine
DX: A41.9 Sepsis, unspecified organism (principal); G93.41 Metabolic encephalopathy; I50.22 Chronic systolic (congestive) heart failure; J44.1 Chronic obstructive pulmonary disease with (acute) exacerbation; J20.9 Acute bronchitis, unspecified; E78.5 Hyperlipidemia, unspecified; M81.0 Age-related osteoporosis without current pathological fracture; M06.9 Rheumatoid arthritis, unspecified; R33.9 Retention of urine, unspecified; S00.03XA Contusion of scalp, initial encounter; W01.0XXA Fall on same level from slipping, tripping and stumbling without subsequent striking against object, initial encounter; Y93.9 Activity, unspecified; Y92.9 Unspecified place or not applicable; Y99.9 Unspecified external cause status; E86.1 Hypovolemia; D64.9 Anemia, unspecified; Z86.73 Personal history of transient ischemic attack (TIA), and cerebral infarction without residual deficits; Z87.891 Personal history of nicotine dependence; Z80.1 Family history of malignant neoplasm of trachea, bronchus and lung
CPT/HCPCS: 36415; 51701; 70450; 71045; 80048; 80053; 80306; 80307; 81003; 81015; 82140; 82274; 82805; 83605; 83880; 84443; 84484; 85025; 86850; 86900; 86901; 87040; 93005; 94640; 96361; 96365; A4353; J0456; J1650; J2920; J7120; J7506; J7626

== ENCOUNTER 2018-08-21 10:35 | Emergency (ER) | payer MEDICARE ==
--- NOTE | 2018-08-21 10:56 | RAD ---
FXR Shoulder Rt 3 View STANDARD: 08/21/2018 10:43 AM CLINICAL INDICATION: Fall with right shoulder pain. COMPARISON: None. FINDINGS: Three views of the right shoulder. The distal right clavicle, scapula, and proximal humerus are intact. Glenohumeral and acromioclavicul ar alignment appear normal. There is no acute fracture or dislocation of the right shoulder. No destr uctive bony lesions are identified. IMPRESSION: No acute fracture or dislocation of the right shoulder.
== END 2018-08-21 11:13 | disposition home or self-care (01) ==
LOC: ERS 10:35
DX: S43.421A Sprain of right rotator cuff capsule, initial encounter (principal); G43.909 Migraine, unspecified, not intractable, without status migrainosus; I50.9 Heart failure, unspecified; J44.9 Chronic obstructive pulmonary disease, unspecified; Z87.891 Personal history of nicotine dependence; Z79.899 Other long term (current) drug therapy; W17.89XA Other fall from one level to another, initial encounter; Z79.82 Long term (current) use of aspirin

== ENCOUNTER 2018-08-27 13:05 | Emergency (ER) | payer MEDICARE ==
[2018-08-27] MEDS ORDERED: Ketorolac Tromethamine 30 MG/ML VIAL ONE (13:24)
--- NOTE | 2018-08-27 14:05 | RAD ---
F3 views right shoulder: 08/27/2018 COMPARISON: None HISTORY: Fall, trauma, pain FINDINGS: There is a vertically oriented linear area of relative hypodensity within the soft tissues lateral to the proximal right humerus. This may represent conspicuous fat. Gas lucency on the basis o f laceration cannot be fully excluded but is felt less likely. Clinical correlation is required. Ther e is mild degenerative change involving the right acromioclavicular joint. No widening of the acromio clavicular or coracoclavicular interspace. No displaced fracture or evidence of dislocation seen. IMPRESSION: No displaced fracture or dislocation. Please see above discussion.
--- NOTE | 2018-08-27 14:06 | RAD ---
F2 views of right clavicle: 08/27/2018 COMPARISON: None HISTORY: Fall, trauma, pain FINDINGS: Mild degenerative change of the right acromioclavicular interspace. No displaced clavicular fracture. IMPRESSION: No acute fracture.
--- NOTE | 2018-08-27 14:09 | RAD ---
FCervical spine 4 views: 08/27/2018 COMPARISON: None HISTORY: Fall, trauma, pain FINDINGS: There is prominent degenerative change at the atlantoaxial interspace. Disc space narrowing and degenerative endplate change with anterior osteophyte formation noted at C4- 5, C5-6, and C6-7. No prevertebral soft tissue swelling. Open-mouth odontoid view demonstrates a norm al-appearing dens and C1-2 articulation. There is prominent multilevel cervical spine facet and uncov ertebral osteophyte formation, left greater than right, most prominent at C4-5, C5-6, and C6-7. The d ens appears grossly unremarkable on the provided Fuchs view, partially obscured by overlapping osseou s structures. IMPRESSION: Multilevel degenerative change of the cervical spine. If cervical spine pain persists giv en history of trauma, CT is advised.
== END 2018-08-27 14:39 | disposition home or self-care (01) ==
LOC: ERS 13:05
DX: M25.511 Pain in right shoulder (principal); G43.909 Migraine, unspecified, not intractable, without status migrainosus; I50.9 Heart failure, unspecified; J44.9 Chronic obstructive pulmonary disease, unspecified; Z87.891 Personal history of nicotine dependence; W19.XXXA Unspecified fall, initial encounter
CPT/HCPCS: 72040; 96372; J1885

== ENCOUNTER 2018-09-08 08:23 | Outpatient (CLI) | payer MEDICARE ==
--- NOTE | 2018-09-08 10:12 | CT ---
CT cervical spine without contrast INDICATION: History of degenerative disc disease COMPARISON: None FINDINGS: There is moderate emphysema involving both lung apices. The prevertebral and paravertebral soft tissues are within normal limits. There are mild vascular adriana cifications involving the right carotid bulb. No acute fracture or subluxation is evident. The craniocervical junction is normal-appearing. At C2-C3, there is severe right and moderate left facet joint degenerative change with uncovertebral hypertrophy. There is mild right osseous neural foraminal narrowing. At C3-4, there is uncovertebral hypertrophy and moderate to severe facet joint degenerative changes i nducing mild bilateral osseous neural foraminal narrowing without appreciable osseous central canal narrowing. There is suspicion for mild broad-based bulge at this level that potentially may cause renetta e mild central canal narrowing is not as well delineated on this noncontrast CT evaluation. At C4-5, there is prominent uncovertebral hypertrophy facet joint degenerative changes inducing mild to moderate left osseous neural foraminal narrowing. At C5-6, there is facet joint degenerative change of vertebral hypertrophy without appreciable osseou s central canal or neural foraminal narrowing. At C6-7, there is a disc osteophyte complex without vertebral hypertrophy inducing mild bilateral oss eous neural foraminal narrowing. At C7-T1, there is no appreciable central canal or neural foraminal narrowing. IMPRESSION: 1. Moderate multilevel spondylosis of the cervical spine. 2. Multilevel osseous neural foraminal narrowing as detailed above. 3. Moderate emphysema
== END 2018-09-08 08:24 | disposition home or self-care (01) ==
LOC: BICCT 08:23
PROVIDERS: ATTEND Orthopaedic Surgery
DX: M50.30 Other cervical disc degeneration, unspecified cervical region (principal); M47.812 Spondylosis without myelopathy or radiculopathy, cervical region; M48.02 Spinal stenosis, cervical region; J43.9 Emphysema, unspecified
CPT/HCPCS: 72125

== ENCOUNTER 2018-09-21 14:54 | Outpatient (CLI) | payer MEDICARE ==
--- NOTE | 2018-09-21 15:31 | RAD ---
EXAM: Cervical spine 5 views including flexion and extension lateral views. HISTORY: Neck pain from a fall from trauma COMPARISON: None FINDINGS: Generalized spondylosis and disc osteophytosis. The odontoid and C1 are partially obscured on the AP open mouth view, no prevertebral soft tissue swelling. No abnormal translation. No evidence for acute fracture or dislocation involving the visualized spine. There are disc osteophytosis and facet arthrosis changes. No evidence for malalignment. No evidence for a bone lesion. IMPRESSION: Spondylosis. No significant acute process.
--- NOTE | 2018-09-21 15:47 | RAD ---
EXAM: Lumbar spine 5 views including standing flexion and extension views HISTORY: Low back pain COMPARISON: 09/29/2016 FINDINGS: No evidence for acute fracture or dislocation involving the visualized spine. There are disc osteophytosis and facet arthrosis changes. Mild grade 1 spondylolisthesis of L3 on L4 without significant abnormal translation between flexion a nd extension. No evidence for a bone lesion. Bony demineralization. IMPRESSION: Spondylosis. No significant acute process. Stable anterolisthesis of L3 on L4.
== END 2018-09-21 14:55 | disposition home or self-care (01) ==
LOC: TBSIIMAG 14:54
PROVIDERS: ATTEND Neurological Surgery
DX: M50.30 Other cervical disc degeneration, unspecified cervical region (principal); M54.9 Dorsalgia, unspecified; M47.816 Spondylosis without myelopathy or radiculopathy, lumbar region; M43.16 Spondylolisthesis, lumbar region; M47.812 Spondylosis without myelopathy or radiculopathy, cervical region
CPT/HCPCS: 72040; 72050; 72100; 72110

== ENCOUNTER 2018-10-18 15:23 | Outpatient (CLI) | payer MEDICARE ==
--- NOTE | 2018-10-18 18:21 | MRI ---
MRI OF THE CERVICAL SPINE WITHOUT CONTRAST: 10/18/18 HISTORY: Cervical radiculopathy. Neck pain, radiating to the shoulders times one month. Patient fell. COMPARISON: None. FINDINGS: Appropriate T1 marrow signal intensity of the cervical vertebrae. Cervical spine vertebral body heigh t is maintained. No fracture. Visualized brain parenchyma, cervicomedullary junction, cervical cord and the upper thoracic cord has a normal size and signal intensity. No significant STIR hyperintensity to suggest vertebral body edema or ligamentous injury. Remote sli ght irregularity involving the superior end plate of T1. C2-C3: Broad based disc osteophyte complex abuts the thecal sac. No significant central canal stenosi s. Mild right foraminal narrowing due to uncovertebral hypertrophy. Left neural foramen is patent. C3-C4: Broad based disc bulge abuts the thecal sac. Ventral subarachnoid space is effaced. Mild inden tation deformity of the cervical cord. Mild central canal stenosis. Moderate to severe right and mod erate left foraminal narrowing due to uncovertebral hypertrophy. C4-C5: Broad based disc osteophyte complex abuts the thecal sac. Subarachnoid space is nearly effaced . Mild flattening of the ventral cord. No cord hyperintensity. Mild central canal stenosis. Mild bila teral foraminal narrowing due to uncovertebral hypertrophy. C5-C6: Broad based disc osteophyte complex abuts the thecal sac. There is mild central canal stenosis . Mild bilateral foraminal narrowing due to uncovertebral hypertrophy. C6-C7: Broad based disc osteophyte complex abuts the thecal sac. Mild central canal stenosis. Moderat e right and mild left foraminal narrowing due to uncovertebral hypertrophy. C7-T1: No significant central canal stenosis or foraminal narrowing. IMPRESSION: Degenerative changes of the cervical spine as detailed above. POS: [facility]
== END 2018-10-18 15:24 | disposition home or self-care (01) ==
LOC: BICMRI 15:23
PROVIDERS: ATTEND Surgery
DX: M47.12 Other spondylosis with myelopathy, cervical region (principal); M47.22 Other spondylosis with radiculopathy, cervical region; M48.02 Spinal stenosis, cervical region
CPT/HCPCS: 72141

== ENCOUNTER 2018-12-25 21:08 | Emergency (ER) | payer MEDICARE ==
--- NOTE | 2018-12-25 22:27 | RAD ---
LEFT HIP TWO VIEWS: History: Left hip pain without injury or trauma. Comparison: 01-05-18 FINDINGS: Bony demineralization with arthrosis changes of the left hip joint without acute fracture or dislocat ion. IMPRESSION: Bony demineralization with arthrosis and degenerative changes but no acute fracture or dislocation. S table from prior study. POS: [facility]
--- NOTE | 2018-12-25 22:28 | RAD ---
LEFT KNEE FOUR VIEWS: History: Left hip and knee pain without trauma. Comparison: 05-12-18 FINDINGS: Bony demineralization. There is evidence for patella ben. Appearance is stable from prior study. IMPRESSION: No fracture or dislocation or other acute process. Stable patella ben. POS: [facility]
[2018-12-25] MEDS ORDERED: Ketorolac Tromethamine 30 MG/ML VIAL ONE (22:40)
== END 2018-12-25 23:16 | disposition home or self-care (01) ==
LOC: ERS 21:08
DX: M25.562 Pain in left knee (principal); M25.552 Pain in left hip; I50.9 Heart failure, unspecified; J44.9 Chronic obstructive pulmonary disease, unspecified; M06.9 Rheumatoid arthritis, unspecified; Z87.891 Personal history of nicotine dependence; Z86.718 Personal history of other venous thrombosis and embolism; Z79.899 Other long term (current) drug therapy
CPT/HCPCS: 96372; J1885

== ENCOUNTER 2018-12-27 09:30 | Outpatient (CLI) | payer MEDICARE ==
--- NOTE | 2018-12-27 09:59 | BD ---
EXAM: DEXA bone density examination HISTORY: 73-year-old postmenopausal female for screening COMPARISON: 02/04/2010 FINDINGS: L1--bone mineral density 0.889 g/sq cm; T score -0.9 L2--bone mineral density 0.983 g/sq cm; T score -0.4 L3--bone mineral density 1.124 g/sq cm; T score 0.4 L4--bone mineral density 1.135 g/sq cm; T score 0.7 Total L1-L4--bone mineral density 1.041 g/sq cm; T score -0.1 Left femoral neck--bone mineral density0.498; T score -3.2 Total proximal left femur--bone mineral density 0.604; T score -2.8 Right femoral neck--bone mineral density0.516; T score -3.0 Total proximal right femur--bone mineral density 0.594; T score -2.8 IMPRESSION: Osteoporosis This patient has a 10 year WHO fracture risk of a major osteoporotic fractur e of 14% and of a hip fracture of 5.2%.
== END 2018-12-27 09:31 | disposition home or self-care (01) ==
LOC: BICMAMMO 09:30
PROVIDERS: ATTEND Internal Medicine Rheumatology
DX: M81.8 Other osteoporosis without current pathological fracture (principal)
CPT/HCPCS: 77080

== ENCOUNTER 2019-12-27 11:51 | Outpatient (CLI) | payer MEDICARE ==
--- NOTE | 2019-12-27 12:25 | RAD ---
Radiograph left knee 2 views: 12/27/2019 HISTORY: 74-year-old female with left knee pain COMPARISON: 12/25/2018 FINDINGS: No fracture or dislocation. Joint spaces are maintained without erosions or osteophytes. Diffuse osteopenia. No joint effusion. At least mild patella ben. Moderate size enthesophyte at anterior superior pole of patella. No interval change. IMPRESSION: No fracture.
== END 2019-12-27 11:52 | disposition home or self-care (01) ==
LOC: BICRAD 11:51
PROVIDERS: ATTEND Internal Medicine Rheumatology
DX: M25.562 Pain in left knee (principal)

== ENCOUNTER 2020-08-11 10:56 | Emergency (ER) | payer MEDICARE | END 2020-08-11 12:06 | disposition home or self-care (01) | LOC: ERS 10:56 | DX: M79.662 Pain in left lower leg (principal); G89.29 Other chronic pain; J44.9 Chronic obstructive pulmonary disease, unspecified; I50.9 Heart failure, unspecified; M06.9 Rheumatoid arthritis, unspecified; Z79.82 Long term (current) use of aspirin; Z79.899 Other long term (current) drug therapy; Z87.891 Personal history of nicotine dependence ==

== ENCOUNTER 2020-11-22 13:30 | Outpatient (CLI) | payer MEDICARE | END 2020-11-22 13:31 | disposition home or self-care (01) | LOC: BICMAMMO 13:30 | PROVIDERS: ATTEND Internal Medicine Rheumatology | DX: M81.8 Other osteoporosis without current pathological fracture (principal); M81.0 Age-related osteoporosis without current pathological fracture | CPT/HCPCS: 77080 ==

== ENCOUNTER 2021-03-02 22:28 | Observation (INO) | payer MEDICARE ==
[~2021-03-02 22:28] MED LIST: Iopamidol-370 76% 500 ML 1 ML ONE
[2021-03-02 23:17] LABS: #Basophils 0.1 thou/uL (0.0-0.2); #Eosinphils 3.7 thou/uL (0.0-0.7); #Lymphocytes 4.4 thou/uL (1.20-3.40); #Monocytes 1.3 thou/uL (0.11-0.59); #Neutrophils 6.9 thou/uL (1.40-6.50); %Basophils 0.6 % (0.0-1.0); %Eosinophils 22.7 % (0.0-10.0); %Lymphocytes 26.6 % (21.0-51.0); %Monocytes 8.1 % (0.0-10.0); Hemoglobin 10.9 g/dL (12.0-16.0); Mean Corpuscular HGB CONC 31.8 g/dL (32.0-36.0); Mean Corpuscular Hemoglobin 29.5 pg (27.0-31.0); Mean Platelet Volume 6.6 fL (7.4-10.4); Platelet Count 453 thou/uL (130-400); RBC Distribution Width 12.8 % (11.5-14.5); White Blood Cell (WBC) Count 16.4 thou/uL (4.8-10.8)
[2021-03-02] MEDS ORDERED: cefTRIAXone\\ROCEPHIN 2 GM VIAL ONE (23:31)
[2021-03-02 23:39] LABS: ALT (SGPT) 19 U/L (8-55); AST (SGOT) 35 U/L (5-34); Albumin 3.9 g/dL (3.4-4.8); Alkaline Phosphatase 108 U/L (40-110); Anion Gap 14 mmol/L (10-20); BUN (Urea Nitrogen) 13 mg/dL (9.8-20.1); Bilirubin, Total 0.6 mg/dL (0.2-1.2); Calc. Creatinine Clearance 0 mL/min (70-130); Carbon Dioxide 28 mmol/L (23-31); Chloride 99 mmol/L (98-107); Globulin 3.4 g/dL (2.4-3.5); Glucose 99 mg/dL (83-110); Potassium 4.2 mmol/L (3.5-5.1); Protein, Total 7.3 g/dL (5.8-8.1); Sodium 137 mmol/L (136-145)
[2021-03-03] MEDS ORDERED: Azithromycin 500 MG VIAL ONE (00:48)
[2021-03-03] MEDS ORDERED: Acetaminophen 325 MG TAB PO PRN (03:09)
[2021-03-03] MEDS ORDERED: Acetaminophen 650 MG Suppository PR PRN (03:09)
[2021-03-03] MEDS ORDERED: Ondansetron ODT 4 MG TAB PO PRN (03:09)
[2021-03-03] MEDS ORDERED: Ondansetron PF 4 MG/2 ML Vial IVP PRN (03:09)
[2021-03-03 04:34] VITALS: BMI 22.7
[2021-03-03 04:56] LABS: SARS-CoV-2 NAA Rapid Test Not Detected (NotDetected)
[2021-03-03 07:19] LABS: #Basophils 0.1 thou/uL (0.0-0.2); #Eosinphils 3.4 thou/uL (0.0-0.7); #Lymphocytes 2.8 thou/uL (1.20-3.40); #Monocytes 1.1 thou/uL (0.11-0.59); #Neutrophils 6.6 thou/uL (1.40-6.50); %Basophils 0.4 % (0.0-1.0); %Eosinophils 24.1 % (0.0-10.0); %Lymphocytes 20.3 % (21.0-51.0); %Monocytes 8.1 % (0.0-10.0); Hemoglobin 9.4 g/dL (12.0-16.0); Mean Corpuscular HGB CONC 32.7 g/dL (32.0-36.0); Mean Corpuscular Volume 91.9 fL (78.0-98.0); Mean Platelet Volume 7.2 fL (7.4-10.4); Platelet Count 400 thou/uL (130-400); RBC Distribution Width 12.9 % (11.5-14.5); Red Blood Cell (RBC) Count 3.13 mill/uL (4.20-5.40)
[2021-03-03 07:29] LABS: Anion Gap 13 mmol/L (10-20); BUN (Urea Nitrogen) 12 mg/dL (9.8-20.1); Calc. Creatinine Clearance 47 mL/min (70-130); Calcium 9.1 mg/dL (7.8-10.44); Carbon Dioxide 24 mmol/L (23-31); Chloride 102 mmol/L (98-107); Glucose 91 mg/dL (83-110); Potassium 4.1 mmol/L (3.5-5.1); Sodium 135 mmol/L (136-145)
[2021-03-03] MEDS ORDERED: Enoxaparin Sodium 40 MG/0.4 ML SYRINGE SC SCH (09:00)
[2021-03-03 11:26] VITALS: BP 99/64; TEMP 98.1
[2021-03-03] MEDS ORDERED: Azithromycin 500 MG in Sodium Chloride 0.9% 250 ML 250 ML IVPB SCH (16:30)
[2021-03-03] MEDS ORDERED: cefTRIAXone\\ROCEPHIN 1 GM in Sodium Chloride 0.9% 100 ML IVPB SCH (21:00)
[2021-03-04] MEDS ORDERED: Azithromycin 500 MG in Sodium Chloride 0.9% 250 ML 250 ML IVPB SCH (21:00)
== END 2021-03-03 18:30 | disposition home or self-care (01) ==
LOC: ERS 22:28 → T4-B 03-03 02:41
PROVIDERS: ADMIT Student in an Organized Health Care Education/Training Program; ATTEND Internal Medicine
DX: J18.9 Pneumonia, unspecified organism (principal); J96.90 Respiratory failure, unspecified, unspecified whether with hypoxia or hypercapnia; R91.8 Other nonspecific abnormal finding of lung field; R59.0 Localized enlarged lymph nodes; I50.22 Chronic systolic (congestive) heart failure; E78.5 Hyperlipidemia, unspecified; J44.0 Chronic obstructive pulmonary disease with (acute) lower respiratory infection; J20.9 Acute bronchitis, unspecified; G43.909 Migraine, unspecified, not intractable, without status migrainosus; M06.9 Rheumatoid arthritis, unspecified; Z87.891 Personal history of nicotine dependence; Z79.82 Long term (current) use of aspirin; Z79.83 Long term (current) use of bisphosphonates; Z79.899 Other long term (current) drug therapy; Z88.5 Allergy status to narcotic agent; Z88.8 Allergy status to other drugs, medicaments and biological substances; Z20.822 Contact with and (suspected) exposure to COVID-19
CPT/HCPCS: 71045; 71275; 80048; 80053; 83605; 83880; 84484; 85025 ×2; 87040; 93005; 96365; 96372; 96376; 99285; G0378 ×2; U0002; 36415; J0456; J0696; J1650; J7050; Q9967

== ENCOUNTER 2021-11-14 13:17 | Outpatient (CLI) | payer MEDICARE | END 2021-11-14 13:18 | disposition home or self-care (01) | LOC: BICULT 13:17 | PROVIDERS: ATTEND Internal Medicine Rheumatology | DX: N18.32 Chronic kidney disease, stage 3b (principal) | CPT/HCPCS: 76770 ==

== ENCOUNTER 2022-07-24 11:13 | Inpatient (IN) | payer MEDICARE ==
[2022-07-24 13:04] LABS: #Basophils 0.1 thou/uL (0.0-0.2); #Eosinphils 2.3 thou/uL (0.0-0.7); #Lymphocytes 2.7 thou/uL (1.20-3.40); #Monocytes 0.9 thou/uL (0.11-0.59); #Neutrophils 6.3 thou/uL (1.40-6.50); %Basophils 0.9 % (0.0-1.0); %Eosinophils 18.7 % (0.0-10.0); %Lymphocytes 21.9 % (21.0-51.0); %Monocytes 7.3 % (0.0-10.0); %Neutrophils 51.3 % (42.0-75.0); Hemoglobin 10.7 g/dL (12.0-16.0); Mean Corpuscular HGB CONC 32.3 g/dL (32.0-36.0); Mean Corpuscular Hemoglobin 31.5 pg (27.0-31.0); Mean Corpuscular Volume 97.4 fl (78.0-98.0); Mean Platelet Volume 7.7 fL (7.4-10.4); Platelet Count 305 10x3/uL (130-400); RBC Distribution Width 12.5 % (11.5-14.5); White Blood Cell (WBC) Count 12.2 10x3/uL (4.8-10.8)
[2022-07-24 13:27] LABS: ALT (SGPT) 14 U/L (8-55); AST (SGOT) 15 U/L (5-34); Albumin 3.7 g/dL (3.4-4.8); Alkaline Phosphatase 66 U/L (40-110); Anion Gap 12 mmol/L (10-20); BUN (Urea Nitrogen) 14 mg/dL (9.8-20.1); Bilirubin, Total 0.8 mg/dL (0.2-1.2); Calc. Creatinine Clearance 0 mL/min (70-130); Calcium 10.8 mg/dL (7.8-10.44); Carbon Dioxide 29 mmol/L (23-31); Chloride 100 mmol/L (98-107); Estimated GFR 69; Globulin 3.3 g/dL (2.4-3.5); Glucose 93 mg/dL (83-110); Potassium 4.3 mmol/L (3.5-5.1); Sodium 137 mmol/L (136-145)
[2022-07-24] MEDS ORDERED: Furosemide 40 MG/4 ML VIAL ONE (14:24)
[2022-07-24 15:50] LABS: Bilirubin Negative (Negative); Blood, Urine Negative (Negative); Clarity Clear (Clear); Glucose, Urine (Dipstick) Normal (Negative); Ketone, Urine Negative (Negative); Leukocyte Negative Leu/uL (Negative); Nitrite Negative (Negative); Protein, Urine (Dipstick) Negative (Neg-Trace); Specific Gravity, Urine 1.012 (1.002-1.036); Urobilinogen Normal mg/dL (Less than 2); pH, Urine 7.5 (5.0-9.0)
[2022-07-24 16:01] LABS: Troponin I 0.016 ng/mL (< 0.028)
[2022-07-24] MEDS ORDERED: Acetaminophen 325 MG TAB PO PRN (16:01)
[2022-07-24] MEDS ORDERED: Electrolyte Replacement Protocol 1 EACH FS SCH (16:15)
[2022-07-24] MEDS: Mometasone 200 MCG/Formoterol 5 MCG 120 PUFF INHALER INH SCH (19:26)
[2022-07-24 20:02] LABS: Troponin I Less than 0.010 ng/mL (< 0.028)
[2022-07-24] MEDS: Metoprolol Tartrate 25 MG TAB PO SCH (20:41)
[2022-07-25 05:34] LABS: Anion Gap 14 mmol/L (10-20); BUN (Urea Nitrogen) 14 mg/dL (9.8-20.1); Calc. Creatinine Clearance 51 mL/min (70-130); Calcium 10.1 mg/dL (7.8-10.44); Carbon Dioxide 28 mmol/L (23-31); Chloride 99 mmol/L (98-107); Estimated GFR 71; Glucose 96 mg/dL (83-110); Potassium 3.7 mmol/L (3.5-5.1); Sodium 137 mmol/L (136-145)
[2022-07-25] MEDS ORDERED: Furosemide 40 MG/4 ML VIAL SLOW IVP SCH (06:00)
[2022-07-25] MEDS: Mometasone 200 MCG/Formoterol 5 MCG 120 PUFF INHALER INH SCH ×2 (07:35→19:20)
[2022-07-25] MEDS: Aspirin 81 mg Enteric Coated Tablet PO SCH (09:33)
[2022-07-25] MEDS: DULoxetine 60 MG CAP PO SCH (09:33)
[2022-07-25] MEDS: Leflunomide 10 mg Tablet PO SCH (09:34)
[2022-07-25] MEDS: Metoprolol Tartrate 25 MG TAB PO SCH ×2 (09:35→21:31)
[2022-07-25] MEDS: Atorvastatin Calcium 20 MG TAB PO SCH (21:31)
[2022-07-26] MEDS: Mometasone 200 MCG/Formoterol 5 MCG 120 PUFF INHALER INH SCH ×2 (08:22→19:03)
[2022-07-26] MEDS: DULoxetine 60 MG CAP PO SCH (09:20)
[2022-07-26] MEDS: Metoprolol Tartrate 25 MG TAB PO SCH ×2 (09:20→21:12)
[2022-07-26] MEDS: Aspirin 81 mg Enteric Coated Tablet PO SCH (09:20)
[2022-07-26] MEDS: Leflunomide 10 mg Tablet PO SCH (09:46)
[2022-07-26 11:00] LABS: #Basophils 0.1 thou/uL (0.0-0.2); #Eosinphils 2.3 thou/uL (0.0-0.7); #Lymphocytes 1.4 thou/uL (1.20-3.40); #Neutrophils 13.3 thou/uL (1.40-6.50); %Basophils 0.4 % (0.0-1.0); %Eosinophils 12.5 % (0.0-10.0); %Monocytes 5.3 % (0.0-10.0); %Neutrophils 73.8 % (42.0-75.0); Mean Corpuscular HGB CONC 31.2 g/dL (32.0-36.0); Mean Corpuscular Hemoglobin 29.9 pg (27.0-31.0); Mean Platelet Volume 7.9 fL (7.4-10.4); Platelet Count 317 10x3/uL (130-400); RBC Distribution Width 12.3 % (11.5-14.5); Red Blood Cell (RBC) Count 3.33 mill/uL (4.20-5.40); White Blood Cell (WBC) Count 18.1 10x3/uL (4.8-10.8)
[2022-07-26 11:18] LABS: Anion Gap 14 mmol/L (10-20); BUN (Urea Nitrogen) 16 mg/dL (9.8-20.1); Calc. Creatinine Clearance 57 mL/min (70-130); Calcium 10.3 mg/dL (7.8-10.44); Carbon Dioxide 25 mmol/L (23-31); Chloride 98 mmol/L (98-107); Estimated GFR 84; Glucose 100 mg/dL (83-110); Potassium 3.9 mmol/L (3.5-5.1); Sodium 133 mmol/L (136-145)
[2022-07-26] MEDS ORDERED: Magnesium 2 GM/50 ML(in water) 2 GM in Premix Bag 1 BAG IVPB SCH (14:00)
[2022-07-26] MEDS: Atorvastatin Calcium 20 MG TAB PO SCH (21:12)
[2022-07-27 04:53] LABS: #Eosinphils 3.2 thou/uL (0.0-0.7); #Lymphocytes 2.3 thou/uL (1.20-3.40); #Monocytes 0.8 thou/uL (0.11-0.59); #Neutrophils 10.5 thou/uL (1.40-6.50); %Basophils 0.3 % (0.0-1.0); %Eosinophils 19.1 % (0.0-10.0); %Lymphocytes 13.8 % (21.0-51.0); %Neutrophils 61.9 % (42.0-75.0); Hemoglobin 10.3 g/dL (12.0-16.0); Mean Corpuscular HGB CONC 32.5 g/dL (32.0-36.0); Mean Corpuscular Hemoglobin 31.2 pg (27.0-31.0); Mean Platelet Volume 8.2 fL (7.4-10.4); Platelet Count 316 10x3/uL (130-400); RBC Distribution Width 12.2 % (11.5-14.5); Red Blood Cell (RBC) Count 3.29 mill/uL (4.20-5.40); White Blood Cell (WBC) Count 16.9 10x3/uL (4.8-10.8)
[2022-07-27 05:15] LABS: Anion Gap 12 mmol/L (10-20); BUN (Urea Nitrogen) 21 mg/dL (9.8-20.1); Calc. Creatinine Clearance 50 mL/min (70-130); Calcium 10.7 mg/dL (7.8-10.44); Carbon Dioxide 30 mmol/L (23-31); Chloride 96 mmol/L (98-107); Estimated GFR 72; Glucose 102 mg/dL (83-110); Magnesium 2.2 mg/dL (1.6-2.6); Potassium 3.6 mmol/L (3.5-5.1); Sodium 134 mmol/L (136-145)
[2022-07-27] MEDS: Mometasone 200 MCG/Formoterol 5 MCG 120 PUFF INHALER INH SCH ×2 (08:10→19:20)
[2022-07-27] MEDS: DULoxetine 60 MG CAP PO SCH (10:12)
[2022-07-27] MEDS: Metoprolol Tartrate 25 MG TAB PO SCH ×2 (10:12→21:27)
[2022-07-27] MEDS: Leflunomide 10 mg Tablet PO SCH (10:12)
[2022-07-27] MEDS: Aspirin 81 mg Enteric Coated Tablet PO SCH (10:12)
[2022-07-27] MEDS: Furosemide 40 MG TAB PO SCH (10:12)
[2022-07-27] MEDS: Atorvastatin Calcium 20 MG TAB PO SCH (21:27)
[2022-07-27] MEDS ORDERED: Sodium Chloride 0.9% 250 ML IV SCH (23:00)
[2022-07-27] MEDS ORDERED: Midodrine HCl 5 MG TAB PO SCH (23:00)
[2022-07-28] MEDS ORDERED: Sodium Chloride 0.9% 250 ML 250 ML IVPB SCH (00:15)
[2022-07-28 00:47] LABS: Chloride 98 mmol/L (98-107); Potassium 4.1 mmol/L (3.5-5.1); Sodium 134 mmol/L (136-145)
[2022-07-28 01:03] LABS: Glucose 89 mg/dL (83-110)
[2022-07-28 01:05] LABS: Carbon Dioxide 23 mmol/L (23-31)
[2022-07-28 01:07] LABS: Calc. Creatinine Clearance 50 mL/min (70-130); Estimated GFR 71
[2022-07-28 01:08] LABS: BUN (Urea Nitrogen) 17 mg/dL (9.8-20.1)
[2022-07-28 01:09] LABS: Magnesium 1.8 mg/dL (1.6-2.6)
[2022-07-28 01:11] LABS: Anion Gap 18 mmol/L (10-20)
[2022-07-28] MEDS ORDERED: Midodrine HCl 5 MG TAB PO SCH (01:30)
[2022-07-28] MEDS ORDERED: Magnesium 2 GM/50 ML(in water) 2 GM in Premix Bag 1 BAG IVPB SCH (02:00)
[2022-07-28] MEDS: Mometasone 200 MCG/Formoterol 5 MCG 120 PUFF INHALER INH SCH ×2 (07:54→19:25)
[2022-07-28] MEDS ORDERED: Ondansetron ODT 4 MG TAB PO PRN (08:51)
[2022-07-28] MEDS ORDERED: Ondansetron PF 4 MG/2 ML Vial IVP PRN (08:51)
[2022-07-28] MEDS: DULoxetine 60 MG CAP PO SCH (09:36)
[2022-07-28] MEDS: Aspirin 81 mg Enteric Coated Tablet PO SCH (09:36)
[2022-07-28] MEDS: Furosemide 40 MG TAB PO SCH (09:37)
[2022-07-28] MEDS: Metoprolol Tartrate 25 MG TAB PO SCH ×2 (09:37→22:36)
[2022-07-28] MEDS: Leflunomide 10 mg Tablet PO SCH (09:41)
[2022-07-28] MEDS: Atorvastatin Calcium 20 MG TAB PO SCH (20:32)
[2022-07-29 05:21] LABS: Band 4 % (5-11); Eosinophils 18 % (0-10); Hemoglobin 9.4 g/dL (12.0-16.0); Hypochromia SLIGHT = 6-15 cells (100X) (0-5/hpf); Lymphocytes 17 % (21-51); MDiff Complete? YES; Mean Corpuscular HGB CONC 31.8 g/dL (32.0-36.0); Mean Corpuscular Volume 97.3 fl (78.0-98.0); Mean Platelet Volume 8.3 fL (7.4-10.4); Monocytes 12 % (0-10); Neutrophil 47 % (42-75); Platelet Count 331 10x3/uL (130-400); Platelet Morphology Comment Appears Adequate; RBC Distribution Width 12.3 % (11.5-14.5); Reactive Lymphocytes 2 % (0-10); Red Blood Cell (RBC) Count 3.04 mill/uL (4.20-5.40); White Blood Cell (WBC) Count 10.8 10x3/uL (4.8-10.8)
[2022-07-29 05:29] LABS: ALT (SGPT) 14 U/L (8-55); AST (SGOT) 22 U/L (5-34); Alkaline Phosphatase 49 U/L (40-110); Anion Gap 15 mmol/L (10-20); BUN (Urea Nitrogen) 17 mg/dL (9.8-20.1); Bilirubin, Total 0.6 mg/dL (0.2-1.2); Calc. Creatinine Clearance 48 mL/min (70-130); Calcium 10.3 mg/dL (7.8-10.44); Carbon Dioxide 30 mmol/L (23-31); Chloride 97 mmol/L (98-107); Estimated GFR 67; Globulin 3.2 g/dL (2.4-3.5); Glucose 86 mg/dL (83-110); Potassium 4.2 mmol/L (3.5-5.1); Protein, Total 6.2 g/dL (5.8-8.1); Sodium 138 mmol/L (136-145)
[2022-07-29] MEDS: Mometasone 200 MCG/Formoterol 5 MCG 120 PUFF INHALER INH SCH ×2 (07:37→19:15)
[2022-07-29] MEDS ORDERED: Magnesium 2 GM/50 ML(in water) 2 GM in Premix Bag 1 BAG IVPB SCH (08:00)
[2022-07-29] MEDS: Leflunomide 10 mg Tablet PO SCH (09:22)
[2022-07-29] MEDS: Aspirin 81 mg Enteric Coated Tablet PO SCH (09:23)
[2022-07-29] MEDS: Metoprolol Tartrate 25 MG TAB PO SCH (09:23)
[2022-07-29] MEDS: DULoxetine 60 MG CAP PO SCH (09:23)
[2022-07-29] MEDS: Furosemide 40 MG TAB PO SCH (09:23)
[2022-07-29] MEDS ORDERED: Polyethylene Glycol 3350 17 GM Packet PO PRN (20:58)
[2022-07-29] MEDS: Atorvastatin Calcium 20 MG TAB PO SCH (22:34)
[2022-07-30] MEDS: Metoprolol Tartrate 25 MG TAB PO SCH ×3 (00:41→20:12)
[2022-07-30 05:04] LABS: ALT (SGPT) 13 U/L (8-55); AST (SGOT) 19 U/L (5-34); Albumin 3.1 g/dL (3.4-4.8); Alkaline Phosphatase 54 U/L (40-110); Anion Gap 14 mmol/L (10-20); BUN (Urea Nitrogen) 20 mg/dL (9.8-20.1); Bilirubin, Total 0.7 mg/dL (0.2-1.2); Calc. Creatinine Clearance 50 mL/min (70-130); Calcium 9.7 mg/dL (7.8-10.44); Carbon Dioxide 28 mmol/L (23-31); Chloride 99 mmol/L (98-107); Estimated GFR 72; Glucose 92 mg/dL (83-110); Magnesium 2.1 mg/dL (1.6-2.6); Potassium 4.3 mmol/L (3.5-5.1); Protein, Total 6.1 g/dL (5.8-8.1); Sodium 137 mmol/L (136-145)
[2022-07-30 05:14] LABS: Eosinophils 26 % (0-10); Hemoglobin 9.7 g/dL (12.0-16.0); Lymphocytes 26 % (21-51); MDiff Complete? YES; Mean Corpuscular HGB CONC 31.9 g/dL (32.0-36.0); Mean Corpuscular Volume 97.1 fl (78.0-98.0); Mean Platelet Volume 7.7 fL (7.4-10.4); Monocytes 10 % (0-10); Neutrophil 37 % (42-75); Platelet Count 340 10x3/uL (130-400); Platelet Morphology Comment Appears Adequate; RBC Distribution Width 12.3 % (11.5-14.5); RBC Morphology Normal; Red Blood Cell (RBC) Count 3.11 mill/uL (4.20-5.40); White Blood Cell (WBC) Count 10.3 10x3/uL (4.8-10.8)
[2022-07-30] MEDS: Mometasone 200 MCG/Formoterol 5 MCG 120 PUFF INHALER INH SCH ×2 (07:01→19:05)
[2022-07-30] MEDS: DULoxetine 60 MG CAP PO SCH (09:49)
[2022-07-30] MEDS: Leflunomide 10 mg Tablet PO SCH (09:49)
[2022-07-30] MEDS: Aspirin 81 mg Enteric Coated Tablet PO SCH (09:50)
[2022-07-30] MEDS: Furosemide 40 MG TAB PO SCH (09:50)
[2022-07-30 13:40] VITALS: BMI 21.5
[2022-07-30] MEDS: Atorvastatin Calcium 20 MG TAB PO SCH (20:11)
[2022-07-31 05:08] LABS: Hemoglobin 9.8 g/dL (12.0-16.0); Mean Corpuscular HGB CONC 31.6 g/dL (32.0-36.0); Mean Corpuscular Hemoglobin 30.5 pg (27.0-31.0); Mean Corpuscular Volume 96.7 fl (78.0-98.0); Mean Platelet Volume 8.3 fL (7.4-10.4); Platelet Count 351 10x3/uL (130-400); RBC Distribution Width 12.4 % (11.5-14.5); White Blood Cell (WBC) Count 9.6 10x3/uL (4.8-10.8)
[2022-07-31 05:18] LABS: Anion Gap 14 mmol/L (10-20); BUN (Urea Nitrogen) 24 mg/dL (9.8-20.1); Calc. Creatinine Clearance 45 mL/min (70-130); Calcium 10.1 mg/dL (7.8-10.44); Carbon Dioxide 29 mmol/L (23-31); Chloride 98 mmol/L (98-107); Estimated GFR 63; Glucose 91 mg/dL (83-110); Sodium 137 mmol/L (136-145)
[2022-07-31 05:31] LABS: Band 2 % (5-11); Eosinophils 21 % (0-10); Lymphocytes 24 % (21-51); MDiff Complete? YES; Monocytes 7 % (0-10); Neutrophil 46 % (42-75); Platelet Morphology Comment Appears Adequate; Polychromasia SLIGHT = 2-3 cells (100X) (0-2/hpf)
[2022-07-31] MEDS: Mometasone 200 MCG/Formoterol 5 MCG 120 PUFF INHALER INH SCH ×2 (08:11→18:55)
[2022-07-31] MEDS: Aspirin 81 mg Enteric Coated Tablet PO SCH (10:31)
[2022-07-31] MEDS: DULoxetine 60 MG CAP PO SCH (10:32)
[2022-07-31] MEDS: Leflunomide 10 mg Tablet PO SCH (10:32)
[2022-07-31] MEDS: Metoprolol Tartrate 25 MG TAB PO SCH ×2 (10:32→10:39)
[2022-07-31] MEDS: Furosemide 40 MG TAB PO SCH ×2 (10:33→10:38)
[2022-07-31 21:17] VITALS: BP 98/56; TEMP 98.9
== END 2022-07-31 21:30 | disposition home health service (06) | DRG 291 ==
LOC: ERS 11:13 → 2NO 15:04
PROVIDERS: ADMIT Internal Medicine; ATTEND Family Medicine
DX: I11.0 Hypertensive heart disease with heart failure (principal); I50.23 Acute on chronic systolic (congestive) heart failure; J18.9 Pneumonia, unspecified organism; J96.21 Acute and chronic respiratory failure with hypoxia; J44.0 Chronic obstructive pulmonary disease with (acute) lower respiratory infection; I42.9 Cardiomyopathy, unspecified; Z20.822 Contact with and (suspected) exposure to COVID-19; G43.909 Migraine, unspecified, not intractable, without status migrainosus; I25.10 Atherosclerotic heart disease of native coronary artery without angina pectoris; D64.9 Anemia, unspecified; M06.9 Rheumatoid arthritis, unspecified; J44.9 Chronic obstructive pulmonary disease, unspecified; I27.20 Pulmonary hypertension, unspecified; Z88.6 Allergy status to analgesic agent; Z88.8 Allergy status to other drugs, medicaments and biological substances; Z79.899 Other long term (current) drug therapy; Z79.82 Long term (current) use of aspirin; Z90.710 Acquired absence of both cervix and uterus; Z87.891 Personal history of nicotine dependence
CPT/HCPCS: 36415; 71045; 80048; 80053; 81003; 83735; 83880; 84484; 85025; 87811; 93005; 93010; 93306; 96374; J1650; J1940; J1956; J3475; J7030; J7050; Q0162; U0003; U0005

== ENCOUNTER 2022-12-02 13:41 | Outpatient (CLI) | payer MEDICARE | END 2022-12-02 13:42 | disposition home or self-care (01) | LOC: BICMAMMO 13:41 | PROVIDERS: ATTEND Internal Medicine Rheumatology | DX: M81.8 Other osteoporosis without current pathological fracture (principal) | CPT/HCPCS: 77080 ==

== ENCOUNTER 2023-12-02 12:30 | Outpatient (CLI) | payer MEDICARE | END 2023-12-02 12:31 | disposition home or self-care (01) | LOC: PET 12:30 | PROVIDERS: ATTEND Internal Medicine Critical Care Medicine | DX: R91.8 Other nonspecific abnormal finding of lung field (principal); J98.4 Other disorders of lung | CPT/HCPCS: 78815; A9552 ==

== ENCOUNTER 2024-04-04 12:25 | Emergency (ER) | payer MEDICARE ==
[2024-04-04] MEDS ORDERED: tiZANidine HCl 4 MG TAB ONE (15:59)
== END 2024-04-04 16:41 | disposition home or self-care (01) ==
LOC: ERS 12:25
DX: S32.020A Wedge compression fracture of second lumbar vertebra, initial encounter for closed fracture (principal); J44.9 Chronic obstructive pulmonary disease, unspecified; I50.9 Heart failure, unspecified; I48.91 Unspecified atrial fibrillation; W18.30XA Fall on same level, unspecified, initial encounter; Z87.891 Personal history of nicotine dependence; Z79.82 Long term (current) use of aspirin; Z79.899 Other long term (current) drug therapy; Z95.0 Presence of cardiac pacemaker
CPT/HCPCS: 72100; 72220; 99283

== ENCOUNTER 2024-05-15 14:19 | Outpatient (CLI) | payer MEDICARE | END 2024-05-15 14:20 | disposition home or self-care (01) | LOC: BICRAD 14:19 | PROVIDERS: ATTEND Surgery | DX: S32.029A Unspecified fracture of second lumbar vertebra, initial encounter for closed fracture (principal) | CPT/HCPCS: 72100 ==

== ENCOUNTER 2024-05-25 15:09 | Outpatient (CLI) | payer MEDICARE | END 2024-05-25 15:10 | disposition home or self-care (01) | LOC: RAD 15:09 | PROVIDERS: ATTEND Internal Medicine Critical Care Medicine | DX: R06.00 Dyspnea, unspecified (principal); R91.8 Other nonspecific abnormal finding of lung field | CPT/HCPCS: 71046 ==

== ENCOUNTER 2024-06-29 14:07 | Outpatient (CLI) | payer MEDICARE | END 2024-06-29 14:08 | disposition home or self-care (01) | LOC: BICRAD 14:07 | PROVIDERS: ATTEND Surgery | DX: S32.021A Stable burst fracture of second lumbar vertebra, initial encounter for closed fracture (principal) | CPT/HCPCS: 72100 ==

== ENCOUNTER 2025-01-03 14:26 | Outpatient (CLI) | payer MEDICARE | END 2025-01-03 14:27 | disposition home or self-care (01) | LOC: RAD 14:26 | PROVIDERS: ATTEND Internal Medicine Critical Care Medicine | DX: R06.00 Dyspnea, unspecified (principal); R91.8 Other nonspecific abnormal finding of lung field | CPT/HCPCS: 71046 ==

== ENCOUNTER 2025-01-30 20:18 | Emergency (ER) | payer MEDICARE ==
[2025-01-30] MEDS ORDERED: Acetaminophen 500 MG TAB ONE (22:46)
== END 2025-01-30 23:58 | disposition home or self-care (01) ==
LOC: ERS 20:18
DX: S73.101A Unspecified sprain of right hip, initial encounter (principal); I50.9 Heart failure, unspecified; J44.9 Chronic obstructive pulmonary disease, unspecified; I48.91 Unspecified atrial fibrillation; Z95.0 Presence of cardiac pacemaker; Z87.891 Personal history of nicotine dependence; W01.0XXA Fall on same level from slipping, tripping and stumbling without subsequent striking against object, initial encounter
CPT/HCPCS: 72170; 99283

== ENCOUNTER 2025-04-03 11:20 | Inpatient (IN) | payer MEDICARE ==
[2025-04-03] MEDS ORDERED: Iopamidol-370 76% 500 ML MDV (1 ML CHARGE) ONE (11:54)
[2025-04-03 12:43] LABS: Hematocrit 31.6 % (36.0-47.0); Hemoglobin 9.6 g/dL (12.0-16.0); Mean Corpuscular Hemoglobin 28.5 pg (27.0-31.0); Mean Corpuscular Volume 93.8 fL (78.0-98.0); Platelet Count 224 10x3/uL (130-400); Red Blood Cell (RBC) Count 3.37 mill/uL (4.20-5.40); White Blood Cell (WBC) Count 13.31 10x3/uL (4.8-10.8)
[2025-04-03 13:00] LABS: ALT (SGPT) 12 U/L (Less than 34); AST (SGOT) 23 U/L (11-34); Albumin 2.6 g/dL (3.1-4.5); Alkaline Phosphatase 96 U/L (40-110); Anion Gap 10 mmol/L (10-20); BUN (Urea Nitrogen) 10 mg/dL (9.8-20.1); Bilirubin, Total 0.5 mg/dL (0.3-1.2); Calc. Creatinine Clearance 0 mL/min (70-130); Calcium 9.8 mg/dL (7.8-10.44); Carbon Dioxide 30 mmol/L (23-31); Chloride 102 mmol/L (98-107); Globulin 3.3 g/dL (2.4-3.5); Glucose 92 mg/dL (83-110); Potassium 3.6 mmol/L (3.5-5.1); Sodium 138 mmol/L (136-145)
[2025-04-03] MEDS ORDERED: Acetaminophen 500 MG TAB ONE (13:07)
[2025-04-03 13:13] LABS: Anisocytosis MODERATE=16-30 cells HPF (0-5); Burr Cells SLIGHT = 2-5 cells HPF (0-1); Macrocytosis SLIGHT = 6-15 cells HPF (0-5); Ovalocytes SLIGHT = 2-5 cells HPF (0-1); Platelet Adequacy Comment Platelets Normal; Schistocytes SLIGHT = 2-5 cells HPF (0-1); Smudge Cells 12.0 %
[2025-04-03] MEDS ORDERED: cefTRIAXone (ROCEPHIN) 1 GM VIAL ONE (14:44)
[2025-04-03] MEDS ORDERED: Vancomycin 1 GM/200 ML (FROZEN) BAG ONE (14:44)
[2025-04-03] MEDS ORDERED: Ondansetron PF 4 MG/2 ML Vial IVP PRN (16:01)
[2025-04-03 17:56] VITALS: BMI 22.4
[2025-04-03] MEDS: Mometasone 100 MCG HFA INHALER (RT USE) INH SCH (19:31)
[2025-04-03] MEDS: Ipratropium Bromide 2.5 ml Neb NEB SCH (19:33)
[2025-04-03] MEDS: Vancomycin 1.5 GM / NS 500ML VIAL-2-BAG IVPB SCH (20:07)
[2025-04-04 05:22] LABS: #Basophils 0.05 10x3/uL (0.0-0.2); #Eosinophils 2.93 10x3/uL (0.0-0.7); #Monocytes 0.82 10x3/uL (0.11-0.59); #Neutrophils 6.55 10x3/uL (1.40-6.50); %Basophils 0.4 % (0.0-1.0); %Eosinophils 23.7 % (0.0-10.0); %Lymphocytes 15.8 % (21.0-51.0); %Monocytes 6.6 % (0.0-10.0); %Neutrophils 53.2 % (42.0-75.0); Hematocrit 28.2 % (36.0-47.0); Hemoglobin 8.6 g/dL (12.0-16.0); Mean Corpuscular Hemoglobin 28.2 pg (27.0-31.0); Mean Corpuscular Volume 92.5 fL (78.0-98.0); Platelet Count 225 10x3/uL (130-400); Red Blood Cell (RBC) Count 3.05 mill/uL (4.20-5.40); White Blood Cell (WBC) Count 12.34 10x3/uL (4.8-10.8)
[2025-04-04 05:31] LABS: Vancomycin, Random 19.3 ug/mL (See Comment)
[2025-04-04 05:38] LABS: Anion Gap 10 mmol/L (10-20); BUN (Urea Nitrogen) 10 mg/dL (9.8-20.1); Calc. Creatinine Clearance 61 mL/min (70-130); Calcium 9.6 mg/dL (7.8-10.44); Carbon Dioxide 25 mmol/L (23-31); Chloride 106 mmol/L (98-107); Glucose 88 mg/dL (83-110); Potassium 3.6 mmol/L (3.5-5.1); Sodium 137 mmol/L (136-145)
[2025-04-04] MEDS: DULoxetine 30 MG CAP PO SCH (08:34)
[2025-04-04] MEDS: Cyanocobalamin (Vitamin B-12) 1,000 MCG TAB PO SCH (08:34)
[2025-04-04] MEDS: CO Q-10 CAPSULE 100 MG PO SCH (08:34)
[2025-04-04] MEDS: Furosemide 20 MG TAB PO SCH (08:35)
[2025-04-04] MEDS: Aspirin 81 mg Enteric Coated Tablet PO SCH (08:35)
[2025-04-04] MEDS: Cholecalciferol 1,000 UNITS (25 MCG) TAB PO SCH (08:35)
[2025-04-04] MEDS: Enoxaparin 40 MG (0.4 mL) SYRINGE SC SCH (08:35)
[2025-04-04] MEDS: Vancomycin 1.25 GM / NS 250 ML VIAL-2-BAG IVPB SCH (12:06)
[2025-04-04] MEDS ORDERED: Vancomycin 1.25 GM / NS 250 ML VIAL-2-BAG IVPB SCH (18:00)
[2025-04-04] MEDS: Acetaminophen 325 MG TAB PO PRN (23:21)
[2025-04-05 05:47] LABS: Hematocrit 25.7 % (36.0-47.0); Hemoglobin 8.1 g/dL (12.0-16.0); Mean Corpuscular Hemoglobin 28.4 pg (27.0-31.0); Mean Corpuscular Volume 90.2 fL (78.0-98.0); Platelet Count 229 10x3/uL (130-400); Red Blood Cell (RBC) Count 2.85 mill/uL (4.20-5.40); White Blood Cell (WBC) Count 10.14 10x3/uL (4.8-10.8)
[2025-04-05 06:15] LABS: Burr Cells SLIGHT = 2-5 cells HPF (0-1); Other Cell Types 1.0; Platelet Adequacy Comment Platelets Normal; Smudge Cells 20.0 %
[2025-04-05 06:44] LABS: Anion Gap 12 mmol/L (10-20); BUN (Urea Nitrogen) 7 mg/dL (9.8-20.1); Calc. Creatinine Clearance 58 mL/min (70-130); Calcium 9.8 mg/dL (7.8-10.44); Carbon Dioxide 25 mmol/L (23-31); Chloride 106 mmol/L (98-107); Glucose 85 mg/dL (83-110); Magnesium 1.8 mg/dL (1.6-2.6); Potassium 3.6 mmol/L (3.5-5.1); Sodium 139 mmol/L (136-145)
[2025-04-05] MEDS: Vancomycin 1 GM in Premix 1 BAG IVPB SCH (12:57)
[2025-04-06 06:06] LABS: Hematocrit 26.9 % (36.0-47.0); Hemoglobin 8.3 g/dL (12.0-16.0); Mean Corpuscular Hemoglobin 28.6 pg (27.0-31.0); Mean Corpuscular Volume 92.8 fL (78.0-98.0); Platelet Count 266 10x3/uL (130-400); Red Blood Cell (RBC) Count 2.90 mill/uL (4.20-5.40); White Blood Cell (WBC) Count 11.46 10x3/uL (4.8-10.8)
[2025-04-06 06:15] LABS: Vancomycin, Random 16.6 ug/mL (See Comment)
[2025-04-06 06:18] LABS: Anion Gap 12 mmol/L (10-20); BUN (Urea Nitrogen) 10 mg/dL (9.8-20.1); Calc. Creatinine Clearance 48 mL/min (70-130); Calcium 10.3 mg/dL (7.8-10.44); Carbon Dioxide 27 mmol/L (23-31); Chloride 106 mmol/L (98-107); Glucose 90 mg/dL (83-110); Magnesium 1.8 mg/dL (1.6-2.6); Potassium 3.6 mmol/L (3.5-5.1); Sodium 141 mmol/L (136-145)
[2025-04-06 06:31] LABS: Burr Cells SLIGHT = 2-5 cells HPF (0-1); Platelet Adequacy Comment Platelets Normal; Polychromasia SLIGHT = 2-3 cells HPF (0-2); Smudge Cells 16.7 %; Target Cells SLIGHT = 2-5 cells HPF (0-1)
[2025-04-06 11:58] LABS: dsDNA IgG Antibody 0.6 IU/mL (<10 Negative)
[2025-04-06 11:59] LABS: ANA Symphony (Qualitative) Negative (Negative); ANA Symphony (Quantitative) Less than 0.1 Ratio (< 0.7 Negative)
[2025-04-07] MEDS: Cefepime 2 GM VIAL ONE (03:34)
[2025-04-07 06:45] LABS: Hematocrit 25.9 % (36.0-47.0); Hemoglobin 8.1 g/dL (12.0-16.0); Mean Corpuscular Hemoglobin 28.2 pg (27.0-31.0); Mean Corpuscular Volume 90.2 fL (78.0-98.0); Platelet Count 265 10x3/uL (130-400); Red Blood Cell (RBC) Count 2.87 mill/uL (4.20-5.40); White Blood Cell (WBC) Count 9.06 10x3/uL (4.8-10.8)
[2025-04-07 06:55] LABS: Anion Gap 11 mmol/L (10-20); BUN (Urea Nitrogen) 7 mg/dL (9.8-20.1); Calc. Creatinine Clearance 54 mL/min (70-130); Calcium 9.8 mg/dL (7.8-10.44); Carbon Dioxide 29 mmol/L (23-31); Chloride 106 mmol/L (98-107); Glucose 91 mg/dL (83-110); Potassium 3.7 mmol/L (3.5-5.1); Sodium 142 mmol/L (136-145)
[2025-04-07 08:16] LABS: Anisocytosis MARKED = >30 cells HPF (0-5); Macrocytosis MODERATE=16-30 cells HPF (0-5); Ovalocytes SLIGHT = 2-5 cells HPF (0-1); Platelet Adequacy Comment Platelets Normal; Polychromasia SLIGHT = 2-3 cells HPF (0-2)
[2025-04-07] MEDS: Guaifenesin DM 100-10/5 ML UDCUP PO PRN (13:53)
[2025-04-08 06:39] LABS: #Basophils 0.05 10x3/uL (0.0-0.2); #Eosinophils 1.87 10x3/uL (0.0-0.7); #Monocytes 0.70 10x3/uL (0.11-0.59); #Neutrophils 4.88 10x3/uL (1.40-6.50); %Basophils 0.5 % (0.0-1.0); %Eosinophils 20.0 % (0.0-10.0); %Lymphocytes 19.7 % (21.0-51.0); %Monocytes 7.5 % (0.0-10.0); %Neutrophils 52.1 % (42.0-75.0); Hematocrit 25.6 % (36.0-47.0); Hemoglobin 8.1 g/dL (12.0-16.0); Mean Corpuscular Hemoglobin 28.7 pg (27.0-31.0); Mean Corpuscular Volume 90.8 fL (78.0-98.0); Platelet Count 289 10x3/uL (130-400); Red Blood Cell (RBC) Count 2.82 mill/uL (4.20-5.40); White Blood Cell (WBC) Count 9.36 10x3/uL (4.8-10.8)
[2025-04-08 06:43] LABS: Vancomycin, Random 14.3 ug/mL (See Comment)
[2025-04-08 06:45] LABS: Anion Gap 12 mmol/L (10-20); BUN (Urea Nitrogen) 8 mg/dL (9.8-20.1); Calc. Creatinine Clearance 55 mL/min (70-130); Calcium 9.7 mg/dL (7.8-10.44); Carbon Dioxide 26 mmol/L (23-31); Chloride 106 mmol/L (98-107); Glucose 92 mg/dL (83-110); Potassium 3.8 mmol/L (3.5-5.1); Sodium 140 mmol/L (136-145)
[2025-04-09 05:32] LABS: #Basophils 0.07 10x3/uL (0.0-0.2); #Eosinophils 1.92 10x3/uL (0.0-0.7); #Monocytes 0.84 10x3/uL (0.11-0.59); #Neutrophils 5.44 10x3/uL (1.40-6.50); %Basophils 0.6 % (0.0-1.0); %Eosinophils 17.4 % (0.0-10.0); %Lymphocytes 24.6 % (21.0-51.0); %Monocytes 7.6 % (0.0-10.0); %Neutrophils 49.3 % (42.0-75.0); Hematocrit 26.8 % (36.0-47.0); Hemoglobin 8.0 g/dL (12.0-16.0); Mean Corpuscular Hemoglobin 28.1 pg (27.0-31.0); Mean Corpuscular Volume 94.0 fL (78.0-98.0); Platelet Count 280 10x3/uL (130-400); Red Blood Cell (RBC) Count 2.85 mill/uL (4.20-5.40); White Blood Cell (WBC) Count 11.05 10x3/uL (4.8-10.8)
[2025-04-09 05:49] LABS: Anion Gap 13 mmol/L (10-20); BUN (Urea Nitrogen) 12 mg/dL (9.8-20.1); Calc. Creatinine Clearance 47 mL/min (70-130); Calcium 9.9 mg/dL (7.8-10.44); Carbon Dioxide 25 mmol/L (23-31); Chloride 107 mmol/L (98-107); Glucose 94 mg/dL (83-110); Potassium 4.0 mmol/L (3.5-5.1); Sodium 141 mmol/L (136-145)
[2025-04-09] MEDS: predniSONE 20 MG TAB PO SCH (14:13)
[2025-04-09 17:44] VITALS: BMI 22.4
[2025-04-10 05:59] LABS: Calc. Creatinine Clearance 54.0 mL/min (70-130)
[2025-04-10 06:00] LABS: Vancomycin, Random 13.7 ug/mL (See Comment)
[2025-04-10] MEDS: predniSONE 20 MG TAB PO SCH (08:44)
[2025-04-10 13:15] LABS: Myeloperoxidase AutoAbs <0.2 units (0.0-0.9); Proteinase-3 AutoAbs Less than 0.2 units (0.0-0.9)
[2025-04-10 13:17] VITALS: BP 140/84; TEMP 98.1
== END 2025-04-10 15:25 | disposition home or self-care (01) | DRG 193 ==
LOC: ERS 11:20 → ERHOLD 14:55 → SURG A 16:50
PROVIDERS: ADMIT Internal Medicine; ATTEND Internal Medicine
DX: J18.9 Pneumonia, unspecified organism (principal); J96.21 Acute and chronic respiratory failure with hypoxia; I50.22 Chronic systolic (congestive) heart failure; J44.1 Chronic obstructive pulmonary disease with (acute) exacerbation; I48.91 Unspecified atrial fibrillation; J44.9 Chronic obstructive pulmonary disease, unspecified; I11.0 Hypertensive heart disease with heart failure; G43.909 Migraine, unspecified, not intractable, without status migrainosus; Z88.8 Allergy status to other drugs, medicaments and biological substances; Z88.5 Allergy status to narcotic agent; M06.9 Rheumatoid arthritis, unspecified; E78.00 Pure hypercholesterolemia, unspecified; Z95.0 Presence of cardiac pacemaker; Z90.710 Acquired absence of both cervix and uterus; Z98.890 Other specified postprocedural states; K59.00 Constipation, unspecified
CPT/HCPCS: 36415; 71045; 71275; 80048; 80053; 80202; 82565; 83516; 83735; 83880; 84484; 85025; 86037; 86038; 86141; 86225; 87040; 89220; 93005; 93010; 94664; 94760; 96365; 96367; J0692; J0696; J1650; J3373; J7030; J7050; J7512; J7644; Q9967

== ENCOUNTER 2025-04-13 17:58 | Inpatient (IN) | payer MEDICARE ==
[2025-04-13 19:38] LABS: Bacteria/HPF None Seen HPF (None Seen); CAUTI Indications for Culture Alt mental st,lethar; Glucose, Urine (Dipstick) Normal (Negative); Leukocyte 25 Leu/uL (Negative); Protein, Urine (Dipstick) Negative (Neg-Trace); RBC/HPF 0-3 HPF (0-3); Specific Gravity, Urine 1.006 (1.002-1.036); WBC/HPF 0-3 HPF (0-3)
[2025-04-13 19:47] LABS: Urine Culture Reflex No No
[2025-04-13 19:50] LABS: Actual Bicarbonate (HCO3v) 27.5 mEq/L (22-28); Base Excess 3.5 mEq/L (-2.0 to +3.0); Calcium, Ionized (venous) 1.10 mmol/L (1.16-1.32); Chloride (VBG) 103 mmol/L (98-106); Hematocrit-VBG 35 % (36.0-47.0); Hemoglobin (Hb) 11.9 g/dL (11.7-16.1); Potassium (VBG) 4.11 mmol/L (3.70-5.30); Sodium 142 mmol/L (133-146)
[2025-04-13 19:51] LABS: #Basophils Less than 0.03 10x3/uL (0.0-0.2); #Eosinophils Less than 0.03 10x3/uL (0.0-0.7); #Monocytes 0.16 10x3/uL (0.11-0.59); #Neutrophils 10.05 10x3/uL (1.40-6.50); %Basophils 0.2 % (0.0-1.0); %Eosinophils 0.0 % (0.0-10.0); %Lymphocytes 6.5 % (21.0-51.0); %Monocytes 1.5 % (0.0-10.0); %Neutrophils 91.3 % (42.0-75.0); Hematocrit 35.5 % (36.0-47.0); Hemoglobin 10.6 g/dL (12.0-16.0); Mean Corpuscular Hemoglobin 27.9 pg (27.0-31.0); Mean Corpuscular Volume 93.4 fL (78.0-98.0); Platelet Count 374 10x3/uL (130-400); Red Blood Cell (RBC) Count 3.80 mill/uL (4.20-5.40); White Blood Cell (WBC) Count 11.01 10x3/uL (4.8-10.8)
[2025-04-13 20:07] LABS: ALT (SGPT) 28 U/L (Less than 34); AST (SGOT) 37 U/L (11-34); Albumin 3.7 g/dL (3.1-4.5); Alkaline Phosphatase 95 U/L (40-110); Anion Gap 14 mmol/L (10-20); BUN (Urea Nitrogen) 12 mg/dL (9.8-20.1); Bilirubin, Total 0.4 mg/dL (0.3-1.2); CK (CPK) 78 U/L (29-168); Calc. Creatinine Clearance 0 mL/min (70-130); Calcium 10.3 mg/dL (7.8-10.44); Carbon Dioxide 26 mmol/L (23-31); Chloride 105 mmol/L (98-107); Globulin 3.9 g/dL (2.4-3.5); Glucose 132 mg/dL (83-110); Magnesium 2.4 mg/dL (1.6-2.6); Potassium 4.2 mmol/L (3.5-5.1); Sodium 141 mmol/L (136-145)
[2025-04-13] MEDS ORDERED: Calcium Carbonate 500 MG ChewTAB PO PRN (22:41)
[2025-04-13] MEDS ORDERED: Senokot S 8.6-50 MG TAB PO PRN (22:41)
[2025-04-13] MEDS ORDERED: Acetaminophen 325 MG TAB PO PRN (22:41)
[2025-04-13] MEDS ORDERED: Ondansetron PF 4 MG/2 ML Vial IVP PRN (22:41)
[2025-04-14 00:45] VITALS: BMI 22.3
[2025-04-14 05:16] LABS: Actual Bicarbonate (HCO3v) 27.6 mEq/L (22-28); Base Excess 2.7 mEq/L (-2.0 to +3.0); Calcium, Ionized (venous) 1.15 mmol/L (1.16-1.32); Chloride (VBG) 102 mmol/L (98-106); Hematocrit-VBG 36 % (36.0-47.0); Hemoglobin (Hb) 12.1 g/dL (11.7-16.1); Potassium (VBG) 4.07 mmol/L (3.70-5.30); Sodium 141 mmol/L (133-146)
[2025-04-14 05:49] LABS: #Basophils 0.03 10x3/uL (0.0-0.2); #Eosinophils Less than 0.03 10x3/uL (0.0-0.7); #Monocytes 0.88 10x3/uL (0.11-0.59); #Neutrophils 9.55 10x3/uL (1.40-6.50); %Basophils 0.2 % (0.0-1.0); %Eosinophils 0.2 % (0.0-10.0); %Lymphocytes 17.4 % (21.0-51.0); %Monocytes 6.9 % (0.0-10.0); %Neutrophils 74.7 % (42.0-75.0); Hematocrit 35.1 % (36.0-47.0); Hemoglobin 10.6 g/dL (12.0-16.0); Mean Corpuscular Hemoglobin 28.0 pg (27.0-31.0); Mean Corpuscular Volume 92.6 fL (78.0-98.0); Platelet Count 398 10x3/uL (130-400); Red Blood Cell (RBC) Count 3.79 mill/uL (4.20-5.40); White Blood Cell (WBC) Count 12.79 10x3/uL (4.8-10.8)
[2025-04-14 06:05] LABS: Anion Gap 15 mmol/L (10-20); BUN (Urea Nitrogen) 10 mg/dL (9.8-20.1); Calc. Creatinine Clearance 55 mL/min (70-130); Calcium 10.2 mg/dL (7.8-10.44); Carbon Dioxide 27 mmol/L (23-31); Chloride 103 mmol/L (98-107); Glucose 102 mg/dL (83-110); Potassium 4.0 mmol/L (3.5-5.1); Sodium 141 mmol/L (136-145)
[2025-04-14] MEDS: Mometasone 200 MCG/Formoterol 5 MCG 120 PUFF INHALER INH SCH (08:44)
[2025-04-14] MEDS: Enoxaparin 40 MG (0.4 mL) SYRINGE SC SCH (09:32)
[2025-04-14] MEDS: Famotidine 20 MG TAB PO SCH (09:41)
[2025-04-14] MEDS: predniSONE 20 MG TAB PO SCH (09:41)
[2025-04-14] MEDS: Cholecalciferol 1,000 UNITS (25 MCG) TAB PO SCH (09:43)
[2025-04-14] MEDS: Cyanocobalamin (Vitamin B-12) 1,000 MCG TAB PO SCH (09:43)
[2025-04-14] MEDS: Aspirin 81 mg Enteric Coated Tablet PO SCH (09:43)
[2025-04-16] MEDS: Melatonin 3 MG TAB PO PRN (21:08)
[2025-04-17] MEDS: DULoxetine 30 MG CAP PO SCH (09:56)
[2025-04-17 12:05] VITALS: BP 137/83; TEMP 98.8
== END 2025-04-17 15:35 | disposition home or self-care (01) | DRG 947 ==
LOC: ERS 17:58 → OBSVTOIN 22:37 → 2NO 22:37
PROVIDERS: ADMIT Student in an Organized Health Care Education/Training Program; ATTEND Internal Medicine
DX: R41.82 Altered mental status, unspecified (principal); G93.41 Metabolic encephalopathy; J18.9 Pneumonia, unspecified organism; I50.22 Chronic systolic (congestive) heart failure; R91.1 Solitary pulmonary nodule; Z88.8 Allergy status to other drugs, medicaments and biological substances; Z79.899 Other long term (current) drug therapy; E78.5 Hyperlipidemia, unspecified; J44.9 Chronic obstructive pulmonary disease, unspecified; I11.0 Hypertensive heart disease with heart failure; I48.0 Paroxysmal atrial fibrillation; Z98.890 Other specified postprocedural states; Z95.0 Presence of cardiac pacemaker; Z87.891 Personal history of nicotine dependence; E86.0 Dehydration; M06.9 Rheumatoid arthritis, unspecified
CPT/HCPCS: 36415; 36416; 70450; 70551; 71045; 71250; 76014; 80048; 80053; 81001; 82140; 82550; 82607; 82805; 83605; 83735; 83880; 84443; 84484; 85025; 87040; 87086; 93005; 94640; 94664; 96372; G0378; J1650; J7120; J7512

== ENCOUNTER 2025-04-18 13:15 | Inpatient (IN) | payer MEDICARE ==
[2025-04-18 14:49] LABS: #Basophils Less than 0.03 10x3/uL (0.0-0.2); #Eosinophils 0.29 10x3/uL (0.0-0.7); #Monocytes 0.93 10x3/uL (0.11-0.59); #Neutrophils 8.51 10x3/uL (1.40-6.50); %Basophils 0.2 % (0.0-1.0); %Eosinophils 2.5 % (0.0-10.0); %Lymphocytes 16.9 % (21.0-51.0); %Monocytes 7.9 % (0.0-10.0); %Neutrophils 72.0 % (42.0-75.0); Hematocrit 38.8 % (36.0-47.0); Hemoglobin 11.8 g/dL (12.0-16.0); Mean Corpuscular Hemoglobin 28.2 pg (27.0-31.0); Mean Corpuscular Volume 92.8 fL (78.0-98.0); Platelet Count 331 10x3/uL (130-400); Red Blood Cell (RBC) Count 4.18 mill/uL (4.20-5.40); White Blood Cell (WBC) Count 11.81 10x3/uL (4.8-10.8)
[2025-04-18 15:07] LABS: ALT (SGPT) 29 U/L (Less than 34); AST (SGOT) 42 U/L (11-34); Albumin 3.7 g/dL (3.1-4.5); Alkaline Phosphatase 91 U/L (40-110); Anion Gap 18 mmol/L (10-20); BUN (Urea Nitrogen) 8 mg/dL (9.8-20.1); Bilirubin, Total 0.7 mg/dL (0.3-1.2); Calc. Creatinine Clearance 0 mL/min (70-130); Calcium 10.7 mg/dL (7.8-10.44); Carbon Dioxide 27 mmol/L (23-31); Chloride 101 mmol/L (98-107); Globulin 3.5 g/dL (2.4-3.5); Glucose 115 mg/dL (83-110); Potassium 4.0 mmol/L (3.5-5.1); Sodium 142 mmol/L (136-145)
[2025-04-18 15:35] LABS: Bacteria/HPF None Seen HPF (None Seen); CAUTI Indications for Culture < 2yrs of age; Glucose, Urine (Dipstick) Normal (Negative); Leukocyte Negative Leu/uL (Negative); Protein, Urine (Dipstick) Negative (Neg-Trace); RBC/HPF None Seen HPF (0-3); Specific Gravity, Urine 1.004 (1.002-1.036); WBC/HPF 0-3 HPF (0-3)
[2025-04-18 15:37] LABS: Urine Culture Reflex Yes Yes
[2025-04-18] MEDS ORDERED: Senokot S 8.6-50 MG TAB PO PRN (16:33)
[2025-04-18] MEDS ORDERED: Acetaminophen 325 MG TAB PO PRN (16:33)
[2025-04-18] MEDS: Mometasone 200 MCG/Formoterol 5 MCG 120 PUFF INHALER INH SCH (18:24)
[2025-04-18] MEDS: Sacubitril 24MG/Valsartan 26 MG TAB PO SCH (21:28)
[2025-04-18] MEDS: Melatonin 3 MG TAB PO PRN (23:22)
[2025-04-19 03:10] VITALS: BMI 22.1
[2025-04-19 05:47] LABS: #Basophils Less than 0.03 10x3/uL (0.0-0.2); #Eosinophils 0.40 10x3/uL (0.0-0.7); #Monocytes 0.78 10x3/uL (0.11-0.59); #Neutrophils 5.67 10x3/uL (1.40-6.50); %Basophils 0.2 % (0.0-1.0); %Eosinophils 4.4 % (0.0-10.0); %Lymphocytes 24.6 % (21.0-51.0); %Monocytes 8.5 % (0.0-10.0); %Neutrophils 62.0 % (42.0-75.0); Hematocrit 36.7 % (36.0-47.0); Hemoglobin 11.5 g/dL (12.0-16.0); Mean Corpuscular Hemoglobin 29.0 pg (27.0-31.0); Mean Corpuscular Volume 92.4 fL (78.0-98.0); Platelet Count 261 10x3/uL (130-400); Red Blood Cell (RBC) Count 3.97 mill/uL (4.20-5.40); White Blood Cell (WBC) Count 9.15 10x3/uL (4.8-10.8)
[2025-04-19 05:54] LABS: Anion Gap 14 mmol/L (10-20); BUN (Urea Nitrogen) 8 mg/dL (9.8-20.1); Calc. Creatinine Clearance 55 mL/min (70-130); Calcium 9.8 mg/dL (7.8-10.44); Carbon Dioxide 28 mmol/L (23-31); Chloride 101 mmol/L (98-107); Glucose 76 mg/dL (83-110); Potassium 3.4 mmol/L (3.5-5.1); Sodium 140 mmol/L (136-145)
[2025-04-19] MEDS: Aspirin 81 mg Enteric Coated Tablet PO SCH (09:36)
[2025-04-20 05:04] LABS: #Basophils 0.03 10x3/uL (0.0-0.2); #Eosinophils 0.19 10x3/uL (0.0-0.7); #Monocytes 0.79 10x3/uL (0.11-0.59); #Neutrophils 4.62 10x3/uL (1.40-6.50); %Basophils 0.4 % (0.0-1.0); %Eosinophils 2.4 % (0.0-10.0); %Lymphocytes 27.2 % (21.0-51.0); %Monocytes 10.2 % (0.0-10.0); %Neutrophils 59.4 % (42.0-75.0); Hematocrit 34.0 % (36.0-47.0); Hemoglobin 10.5 g/dL (12.0-16.0); Mean Corpuscular Hemoglobin 29.2 pg (27.0-31.0); Mean Corpuscular Volume 94.4 fL (78.0-98.0); Platelet Count 240 10x3/uL (130-400); Red Blood Cell (RBC) Count 3.60 mill/uL (4.20-5.40); White Blood Cell (WBC) Count 7.78 10x3/uL (4.8-10.8)
[2025-04-20 05:46] LABS: Anion Gap 18 mmol/L (10-20); BUN (Urea Nitrogen) 10 mg/dL (9.8-20.1); Calc. Creatinine Clearance 56 mL/min (70-130); Calcium 9.7 mg/dL (7.8-10.44); Carbon Dioxide 20 mmol/L (23-31); Chloride 104 mmol/L (98-107); Glucose 75 mg/dL (83-110); Potassium 5.5 mmol/L (3.5-5.1); Sodium 136 mmol/L (136-145)
[2025-04-20 12:01] VITALS: BMI 22.1
[2025-04-23 12:35] VITALS: BP 106/70; TEMP 97.9
== END 2025-04-23 13:10 | disposition home or self-care (01) | DRG 884 ==
LOC: ERS 13:15 → SURG B 16:18 → OBSVTOIN 04-19 11:48
PROVIDERS: ADMIT Family Medicine; ATTEND Family Medicine
DX: R40.4 Transient alteration of awareness (principal); J96.21 Acute and chronic respiratory failure with hypoxia; I50.22 Chronic systolic (congestive) heart failure; J44.9 Chronic obstructive pulmonary disease, unspecified; E78.5 Hyperlipidemia, unspecified; I48.0 Paroxysmal atrial fibrillation; M06.9 Rheumatoid arthritis, unspecified; I11.0 Hypertensive heart disease with heart failure; E87.6 Hypokalemia; Z99.2 Dependence on renal dialysis; Z87.891 Personal history of nicotine dependence; F03.90 Unspecified dementia, unspecified severity, without behavioral disturbance, psychotic disturbance, mood disturbance, and anxiety
CPT/HCPCS: 36415; 70450; 71045; 80048; 80053; 81001; 84484; 85025; 87086; 93005; 94640; 94664; G0378; J7512

== ENCOUNTER 2025-04-25 21:39 | Observation (INO) | payer MEDICARE ==
[2025-04-25 22:45] LABS: #Basophils 0.06 10x3/uL (0.0-0.2); #Eosinophils 0.61 10x3/uL (0.0-0.7); #Monocytes 0.64 10x3/uL (0.11-0.59); #Neutrophils 8.06 10x3/uL (1.40-6.50); %Basophils 0.5 % (0.0-1.0); %Eosinophils 5.5 % (0.0-10.0); %Lymphocytes 15.3 % (21.0-51.0); %Monocytes 5.8 % (0.0-10.0); %Neutrophils 72.5 % (42.0-75.0); Hematocrit 36.7 % (36.0-47.0); Hemoglobin 11.6 g/dL (12.0-16.0); Mean Corpuscular Hemoglobin 29.0 pg (27.0-31.0); Mean Corpuscular Volume 91.8 fL (78.0-98.0); Platelet Count 182 10x3/uL (130-400); Red Blood Cell (RBC) Count 4.00 mill/uL (4.20-5.40); White Blood Cell (WBC) Count 11.12 10x3/uL (4.8-10.8)
[2025-04-25 23:03] LABS: INR-International Normal Ratio 1.1; Prothrombin Time 14.0 sec (12.0-14.7)
[2025-04-25 23:04] LABS: PTT 28.5 sec (22.9-36.1)
[2025-04-25 23:08] LABS: Magnesium 1.8 mg/dL (1.6-2.6)
[2025-04-25 23:09] LABS: Acetaminophen Less than 10 mcg/mL (Less than 10); Salicylate Less than 8.0 mg/dL (Less than 8.0)
[2025-04-25 23:10] LABS: ALT (SGPT) 20 U/L (Less than 34); AST (SGOT) 23 U/L (11-34); Albumin 3.9 g/dL (3.1-4.5); Alkaline Phosphatase 88 U/L (40-110); Anion Gap 17 mmol/L (10-20); BUN (Urea Nitrogen) 22 mg/dL (9.8-20.1); Bilirubin, Total 0.9 mg/dL (0.3-1.2); Calc. Creatinine Clearance 0 mL/min (70-130); Calcium 10.8 mg/dL (7.8-10.44); Carbon Dioxide 28 mmol/L (23-31); Chloride 102 mmol/L (98-107); Globulin 3.0 g/dL (2.4-3.5); Glucose 135 mg/dL (83-110); Potassium 4.0 mmol/L (3.5-5.1); Sodium 143 mmol/L (136-145)
[2025-04-25 23:17] LABS: CAUTI Indications for Culture Alt mental st,lethar; Glucose, Urine (Dipstick) Normal (Negative); Leukocyte 500 Leu/uL (Negative); Protein, Urine (Dipstick) 30 mg/dL (Neg-Trace); RBC/HPF 21-50 HPF (0-3); Specific Gravity, Urine 1.020 (1.002-1.036); WBC/HPF Greater than 50 HPF (0-3)
[2025-04-25 23:19] LABS: Cocaine Metabolite Screen Negative (Negative); THC/Cannabinoid Screen Negative (Negative); Tricyclic Screen PRELIM POSITIVE (Negative)
[2025-04-25 23:20] LABS: Bacteria/HPF Rare-Few HPF (None Seen)
[2025-04-25 23:21] LABS: Urine Culture Reflex Yes Yes
[2025-04-26] MEDS ORDERED: cefTRIAXone (ROCEPHIN) 2 GM VIAL ONE (00:12)
[2025-04-26] MEDS ORDERED: Ondansetron PF 4 MG/2 ML Vial IVP PRN (01:51)
[2025-04-26] MEDS ORDERED: Calcium Carbonate 500 MG ChewTAB PO PRN (01:51)
[2025-04-26] MEDS ORDERED: Acetaminophen 325 MG TAB PO PRN (01:51)
[2025-04-26] MEDS ORDERED: Potassium Chloride 20 MEQ in Premix 1 BAG IVPB PRN (02:00)
[2025-04-26] MEDS ORDERED: PHOS-NAK 1 PKT PACK PO PRN (02:00)
[2025-04-26] MEDS ORDERED: Magnesium 2 GM/50 ML(in water) 2 GM in Premix 1 BAG IVPB PRN (02:00)
[2025-04-26] MEDS ORDERED: Electrolyte Replacement Protocol 1 EACH FS SCH (02:00)
[2025-04-26 05:10] LABS: #Basophils 0.06 10x3/uL (0.0-0.2); #Eosinophils 0.54 10x3/uL (0.0-0.7); #Monocytes 0.67 10x3/uL (0.11-0.59); #Neutrophils 7.02 10x3/uL (1.40-6.50); %Basophils 0.6 % (0.0-1.0); %Eosinophils 5.5 % (0.0-10.0); %Lymphocytes 15.0 % (21.0-51.0); %Monocytes 6.8 % (0.0-10.0); %Neutrophils 71.7 % (42.0-75.0); Hematocrit 34.3 % (36.0-47.0); Hemoglobin 10.4 g/dL (12.0-16.0); Mean Corpuscular Hemoglobin 28.7 pg (27.0-31.0); Mean Corpuscular Volume 94.5 fL (78.0-98.0); Platelet Count 165 10x3/uL (130-400); Red Blood Cell (RBC) Count 3.63 mill/uL (4.20-5.40); White Blood Cell (WBC) Count 9.80 10x3/uL (4.8-10.8)
[2025-04-26 05:52] LABS: ALT (SGPT) 16 U/L (Less than 34); AST (SGOT) 18 U/L (11-34); Albumin 3.1 g/dL (3.1-4.5); Alkaline Phosphatase 73 U/L (40-110); Anion Gap 15 mmol/L (10-20); BUN (Urea Nitrogen) 22 mg/dL (9.8-20.1); Bilirubin, Total 0.4 mg/dL (0.3-1.2); Calc. Creatinine Clearance 0 mL/min (70-130); Calcium 9.7 mg/dL (7.8-10.44); Carbon Dioxide 27 mmol/L (23-31); Chloride 105 mmol/L (98-107); Globulin 2.9 g/dL (2.4-3.5); Glucose 92 mg/dL (83-110); Potassium 3.2 mmol/L (3.5-5.1); Sodium 144 mmol/L (136-145)
[2025-04-26] MEDS: Aspirin 81 mg Enteric Coated Tablet PO SCH (09:03)
[2025-04-26] MEDS: Sacubitril 24MG/Valsartan 26 MG TAB PO SCH (09:03)
[2025-04-26] MEDS: Furosemide 20 MG TAB PO SCH (09:03)
[2025-04-26] MEDS: cefTRIAXone\\ROCEPHIN 1 GM in Sodium Chloride 0.9% 100 ML IVPB SCH (09:04)
[2025-04-26] MEDS: Mometasone 200 MCG/Formoterol 5 MCG 120 PUFF INHALER INH SCH (09:21)
[2025-04-26 10:59] VITALS: BMI 21.3
[2025-04-27] MEDS ORDERED: Potassium Chloride 20 MEQ in Premix 1 BAG IVPB PRN (16:00)
[2025-04-27] MEDS ORDERED: Magnesium Sulfate In Water 4 GM in Premix 1 BAG IVPB PRN (16:00)
[2025-04-27] MEDS ORDERED: PHOS-NAK 1 PKT PACK PO PRN (16:00)
[2025-04-27 20:14] VITALS: TEMP 97.9
[2025-04-27 22:06] VITALS: BP 168/77
== END 2025-04-27 20:40 | disposition home or self-care (01) ==
LOC: ERS 21:39 → 2NO 04-26 01:13
PROVIDERS: ADMIT Student in an Organized Health Care Education/Training Program; ATTEND Internal Medicine
DX: T50.901A Poisoning by unspecified drugs, medicaments and biological substances, accidental (unintentional), initial encounter (principal); F03.90 Unspecified dementia, unspecified severity, without behavioral disturbance, psychotic disturbance, mood disturbance, and anxiety; M06.9 Rheumatoid arthritis, unspecified; J44.0 Chronic obstructive pulmonary disease with (acute) lower respiratory infection; I11.0 Hypertensive heart disease with heart failure; I50.22 Chronic systolic (congestive) heart failure; I48.0 Paroxysmal atrial fibrillation; Z88.5 Allergy status to narcotic agent; Z88.8 Allergy status to other drugs, medicaments and biological substances; Z79.82 Long term (current) use of aspirin; Z79.899 Other long term (current) drug therapy; Z79.51 Long term (current) use of inhaled steroids; Z90.710 Acquired absence of both cervix and uterus; Z87.891 Personal history of nicotine dependence; Z95.1 Presence of aortocoronary bypass graft; Z95.818 Presence of other cardiac implants and grafts
CPT/HCPCS: 80053 ×2; 80306; 80307; 81001; 83735; 83880; 84484; 85025 ×2; 85610; 85730; 87086; 93005; 94640 ×5; 96376 ×2; G0378 ×3; J0696 ×3; 36415; 96365

== ENCOUNTER 2025-05-07 20:08 | Inpatient (IN) | payer MEDICARE ==
[2025-05-07 20:53] LABS: #Basophils 0.03 10x3/uL (0.0-0.2); #Eosinophils 0.25 10x3/uL (0.0-0.7); #Monocytes 0.60 10x3/uL (0.11-0.59); #Neutrophils 4.90 10x3/uL (1.40-6.50); %Basophils 0.4 % (0.0-1.0); %Eosinophils 3.3 % (0.0-10.0); %Lymphocytes 22.8 % (21.0-51.0); %Monocytes 8.0 % (0.0-10.0); %Neutrophils 65.2 % (42.0-75.0); Hematocrit 34.3 % (36.0-47.0); Hemoglobin 10.4 g/dL (12.0-16.0); Mean Corpuscular Hemoglobin 27.9 pg (27.0-31.0); Mean Corpuscular Volume 92.0 fL (78.0-98.0); Platelet Count 210 10x3/uL (130-400); Red Blood Cell (RBC) Count 3.73 mill/uL (4.20-5.40); White Blood Cell (WBC) Count 7.51 10x3/uL (4.8-10.8)
[2025-05-07 21:08] LABS: ALT (SGPT) 16 U/L (Less than 34); AST (SGOT) 34 U/L (11-34); Albumin 3.5 g/dL (3.1-4.5); Alkaline Phosphatase 74 U/L (40-110); Anion Gap 16 mmol/L (10-20); BUN (Urea Nitrogen) 17 mg/dL (9.8-20.1); Bilirubin, Total 0.7 mg/dL (0.3-1.2); Calc. Creatinine Clearance 0 mL/min (70-130); Calcium 10.9 mg/dL (7.8-10.44); Carbon Dioxide 24 mmol/L (23-31); Chloride 105 mmol/L (98-107); Globulin 3.5 g/dL (2.4-3.5); Glucose 74 mg/dL (83-110); Potassium 3.7 mmol/L (3.5-5.1); Sodium 141 mmol/L (136-145)
[2025-05-08 00:11] VITALS: BMI 19.3
[2025-05-08] MEDS ORDERED: Calcium Carbonate 500 MG ChewTAB PO PRN (00:19)
[2025-05-08] MEDS ORDERED: Guaifenesin DM 100-10/5 ML UDCUP PO PRN (00:19)
[2025-05-08] MEDS ORDERED: Ondansetron PF 4 MG/2 ML Vial IVP PRN (00:19)
[2025-05-08] MEDS ORDERED: Bisacodyl 10 MG SUPP PR PRN (00:19)
[2025-05-08] MEDS ORDERED: Electrolyte Replacement Protocol 1 EACH FS SCH (00:30)
[2025-05-08] MEDS ORDERED: Magnesium Sulfate In Water 4 GM in Premix 1 BAG IVPB PRN (00:30)
[2025-05-08] MEDS ORDERED: PHOS-NAK 1 PKT PACK PO PRN (00:30)
[2025-05-08] MEDS ORDERED: Potassium Chloride 20 MEQ in Premix 1 BAG IVPB PRN (00:30)
[2025-05-08] MEDS: Mometasone 100 MCG/Formoterol 5 MCG 120 PUFF INHALER INH SCH (07:07)
[2025-05-08] MEDS: Aspirin 81 mg Enteric Coated Tablet PO SCH (10:50)
[2025-05-08] MEDS: Enoxaparin 40 MG (0.4 mL) SYRINGE SC SCH (10:51)
[2025-05-08] MEDS: Furosemide 20 MG TAB PO SCH (10:51)
[2025-05-08] MEDS: DULoxetine 30 MG CAP PO SCH (10:51)
[2025-05-08 15:30] LABS: CAUTI Indications for Culture Alt mental st,lethar; Glucose, Urine (Dipstick) Normal (Negative); Leukocyte 500 Leu/uL (Negative); Protein, Urine (Dipstick) 50 mg/dL (Neg-Trace); Specific Gravity, Urine 1.023 (1.002-1.036)
[2025-05-08 15:48] LABS: RBC/HPF 0-3 HPF (0-3); WBC/HPF 21-50 HPF (0-3)
[2025-05-08 15:49] LABS: Bacteria/HPF 2+ HPF (None Seen)
[2025-05-08 15:50] LABS: Urine Culture Reflex Yes Yes
[2025-05-08] MEDS: cefTRIAXone\\ROCEPHIN 1 GM in Sodium Chloride 0.9% 100 ML IVPB SCH (18:53)
[2025-05-08] MEDS: Melatonin 3 MG TAB PO PRN (20:12)
[2025-05-08] MEDS: Metoprolol Succinate XL 25 MG ER.TAB PO SCH ×2 (20:12)
[2025-05-09 05:50] LABS: #Basophils 0.03 10x3/uL (0.0-0.2); #Eosinophils 0.34 10x3/uL (0.0-0.7); #Monocytes 0.59 10x3/uL (0.11-0.59); #Neutrophils 3.81 10x3/uL (1.40-6.50); %Basophils 0.4 % (0.0-1.0); %Eosinophils 4.9 % (0.0-10.0); %Lymphocytes 30.9 % (21.0-51.0); %Monocytes 8.5 % (0.0-10.0); %Neutrophils 55.0 % (42.0-75.0); Hematocrit 33.4 % (36.0-47.0); Hemoglobin 9.8 g/dL (12.0-16.0); Mean Corpuscular Hemoglobin 27.9 pg (27.0-31.0); Mean Corpuscular Volume 95.2 fL (78.0-98.0); Platelet Count 208 10x3/uL (130-400); Red Blood Cell (RBC) Count 3.51 mill/uL (4.20-5.40); White Blood Cell (WBC) Count 6.93 10x3/uL (4.8-10.8)
[2025-05-09 06:12] LABS: ALT (SGPT) 13 U/L (Less than 34); AST (SGOT) 29 U/L (11-34); Albumin 3.1 g/dL (3.1-4.5); Alkaline Phosphatase 67 U/L (40-110); Anion Gap 18 mmol/L (10-20); BUN (Urea Nitrogen) 16 mg/dL (9.8-20.1); Bilirubin, Total 0.6 mg/dL (0.3-1.2); Calc. Creatinine Clearance 39 mL/min (70-130); Calcium 10.6 mg/dL (7.8-10.44); Carbon Dioxide 23 mmol/L (23-31); Chloride 107 mmol/L (98-107); Globulin 2.9 g/dL (2.4-3.5); Glucose 76 mg/dL (83-110); Magnesium 1.9 mg/dL (1.6-2.6); Potassium 3.5 mmol/L (3.5-5.1); Sodium 144 mmol/L (136-145)
[2025-05-09 09:03] VITALS: BMI 19.3
[2025-05-09] MEDS: Acetaminophen 325 MG TAB PO PRN (20:59)
[2025-05-11] MEDS ORDERED: GUAIFENESIN SF SOLN 200 MG/10 ML UDCUP PO PRN (10:12)
[2025-05-11] MEDS: Benzonatate 100 MG CAP PO SCH (13:03)
[2025-05-12 19:50] LABS: #Basophils 0.04 10x3/uL (0.0-0.2); #Eosinophils 0.16 10x3/uL (0.0-0.7); #Monocytes 0.70 10x3/uL (0.11-0.59); #Neutrophils 3.82 10x3/uL (1.40-6.50); %Basophils 0.6 % (0.0-1.0); %Eosinophils 2.3 % (0.0-10.0); %Lymphocytes 32.6 % (21.0-51.0); %Monocytes 9.9 % (0.0-10.0); %Neutrophils 54.2 % (42.0-75.0); Hematocrit 35.6 % (36.0-47.0); Hemoglobin 10.7 g/dL (12.0-16.0); Mean Corpuscular Hemoglobin 28.2 pg (27.0-31.0); Mean Corpuscular Volume 93.7 fL (78.0-98.0); Platelet Count 249 10x3/uL (130-400); Red Blood Cell (RBC) Count 3.80 mill/uL (4.20-5.40); White Blood Cell (WBC) Count 7.05 10x3/uL (4.8-10.8)
[2025-05-12 20:06] LABS: Anion Gap 19 mmol/L (10-20); BUN (Urea Nitrogen) 12 mg/dL (9.8-20.1); Calc. Creatinine Clearance 37 mL/min (70-130); Calcium 10.9 mg/dL (7.8-10.44); Carbon Dioxide 24 mmol/L (23-31); Chloride 107 mmol/L (98-107); Glucose 80 mg/dL (83-110); Magnesium 1.9 mg/dL (1.6-2.6); Potassium 3.3 mmol/L (3.5-5.1); Sodium 147 mmol/L (136-145)
[2025-05-13] MEDS: Senokot S 8.6-50 MG TAB PO PRN (00:41)
[2025-05-13] MEDS: OLANZapine 10 MG VIAL IM SCH (06:15)
[2025-05-13] MEDS: Potassium Bicarbonate/Cit Ac 20 MEQ TAB PO PRN (18:49)
[2025-05-13] MEDS: Ziprasidone 20 MG CAP PO SCH (22:23)
[2025-05-15 13:35] LABS: #Basophils 0.05 10x3/uL (0.0-0.2); #Eosinophils 0.20 10x3/uL (0.0-0.7); #Monocytes 0.71 10x3/uL (0.11-0.59); #Neutrophils 5.39 10x3/uL (1.40-6.50); %Basophils 0.6 % (0.0-1.0); %Eosinophils 2.5 % (0.0-10.0); %Lymphocytes 21.2 % (21.0-51.0); %Monocytes 8.8 % (0.0-10.0); %Neutrophils 66.7 % (42.0-75.0); Hematocrit 34.9 % (36.0-47.0); Hemoglobin 10.8 g/dL (12.0-16.0); Mean Corpuscular Hemoglobin 28.6 pg (27.0-31.0); Mean Corpuscular Volume 92.3 fL (78.0-98.0); Platelet Count 241 10x3/uL (130-400); Red Blood Cell (RBC) Count 3.78 mill/uL (4.20-5.40); White Blood Cell (WBC) Count 8.08 10x3/uL (4.8-10.8)
[2025-05-15 13:58] LABS: Anion Gap 15 mmol/L (10-20); BUN (Urea Nitrogen) 15 mg/dL (9.8-20.1); Calc. Creatinine Clearance 32 mL/min (70-130); Calcium 10.9 mg/dL (7.8-10.44); Carbon Dioxide 27 mmol/L (23-31); Chloride 104 mmol/L (98-107); Glucose 109 mg/dL (83-110); Potassium 3.7 mmol/L (3.5-5.1); Sodium 142 mmol/L (136-145)
[2025-05-19 09:51] LABS: #Basophils 0.03 10x3/uL (0.0-0.2); #Eosinophils 0.34 10x3/uL (0.0-0.7); #Monocytes 0.57 10x3/uL (0.11-0.59); #Neutrophils 4.47 10x3/uL (1.40-6.50); %Basophils 0.4 % (0.0-1.0); %Eosinophils 4.8 % (0.0-10.0); %Lymphocytes 24.1 % (21.0-51.0); %Monocytes 8.0 % (0.0-10.0); %Neutrophils 62.4 % (42.0-75.0); Hematocrit 34.4 % (36.0-47.0); Hemoglobin 10.3 g/dL (12.0-16.0); Mean Corpuscular Hemoglobin 28.0 pg (27.0-31.0); Mean Corpuscular Volume 93.5 fL (78.0-98.0); Platelet Count 234 10x3/uL (130-400); Red Blood Cell (RBC) Count 3.68 mill/uL (4.20-5.40); White Blood Cell (WBC) Count 7.15 10x3/uL (4.8-10.8)
[2025-05-19 10:06] LABS: Anion Gap 12 mmol/L (10-20); BUN (Urea Nitrogen) 12 mg/dL (9.8-20.1); Calc. Creatinine Clearance 37 mL/min (70-130); Calcium 10.3 mg/dL (7.8-10.44); Carbon Dioxide 29 mmol/L (23-31); Chloride 108 mmol/L (98-107); Glucose 132 mg/dL (83-110); Magnesium 1.7 mg/dL (1.6-2.6); Potassium 3.2 mmol/L (3.5-5.1); Sodium 146 mmol/L (136-145)
[2025-05-19] MEDS: DC Electrolyte Protocol FS ONE (10:18)
[2025-05-19] MEDS: PHOS-NAK 1 PKT PACK PO SCH (12:43)
[2025-05-19] MEDS: Thiamine 100 MG TAB PO SCH (21:09)
[2025-05-19] MEDS: Cyanocobalamin (Vitamin B-12) 1,000 MCG TAB PO SCH (21:09)
[2025-05-19] MEDS: Multivit, Therapeutic 1 TAB PO SCH (21:10)
[2025-05-19] MEDS: Cholecalciferol 1,000 UNITS (25 MCG) TAB PO SCH (21:10)
[2025-05-19] MEDS: Magnesium Oxide 400 MG TAB PO SCH (21:10)
[2025-05-19] MEDS: Senokot S 8.6-50 MG TAB PO SCH (21:11)
[2025-05-19] MEDS: Bisacodyl 10 MG SUPP PR SCH (21:11)
[2025-05-21 06:44] LABS: Anion Gap 10 mmol/L (10-20); BUN (Urea Nitrogen) 15 mg/dL (9.8-20.1); Calc. Creatinine Clearance 44 mL/min (70-130); Calcium 9.8 mg/dL (7.8-10.44); Carbon Dioxide 27 mmol/L (23-31); Chloride 110 mmol/L (98-107); Glucose 90 mg/dL (83-110); Potassium 3.7 mmol/L (3.5-5.1); Sodium 143 mmol/L (136-145)
[2025-05-21 09:40] VITALS: TEMP 98.5
[2025-05-21 15:47] VITALS: BP 101/65
[2025-05-21] MEDS ORDERED: Folic Acid 1 MG TAB PO SCH (21:00)
== END 2025-05-21 15:30 | DRG 689 ==
LOC: ERS 20:08 → T4-A 23:06 → OBSVTOIN 05-08 16:50
PROVIDERS: ADMIT Internal Medicine; ATTEND Internal Medicine
DX: N30.00 Acute cystitis without hematuria (principal); G93.41 Metabolic encephalopathy; E87.0 Hyperosmolality and hypernatremia; I50.22 Chronic systolic (congestive) heart failure; I11.0 Hypertensive heart disease with heart failure; F03.B0 Unspecified dementia, moderate, without behavioral disturbance, psychotic disturbance, mood disturbance, and anxiety; E78.5 Hyperlipidemia, unspecified; J44.9 Chronic obstructive pulmonary disease, unspecified; I48.0 Paroxysmal atrial fibrillation; M06.9 Rheumatoid arthritis, unspecified; F03.90 Unspecified dementia, unspecified severity, without behavioral disturbance, psychotic disturbance, mood disturbance, and anxiety; Z66 Do not resuscitate; G43.909 Migraine, unspecified, not intractable, without status migrainosus; W18.30XA Fall on same level, unspecified, initial encounter; I95.9 Hypotension, unspecified; E87.6 Hypokalemia; E83.39 Other disorders of phosphorus metabolism; Z79.899 Other long term (current) drug therapy; Z95.0 Presence of cardiac pacemaker; Z95.818 Presence of other cardiac implants and grafts; Z86.73 Personal history of transient ischemic attack (TIA), and cerebral infarction without residual deficits; Z88.8 Allergy status to other drugs, medicaments and biological substances; Z98.49 Cataract extraction status, unspecified eye; Z90.710 Acquired absence of both cervix and uterus; Z87.891 Personal history of nicotine dependence; Y92.009 Unspecified place in unspecified non-institutional (private) residence as the place of occurrence of the external cause; Z98.890 Other specified postprocedural states; Z79.82 Long term (current) use of aspirin; Z79.51 Long term (current) use of inhaled steroids
CPT/HCPCS: 36415; 36416; 70450; 71045; 80048; 80053; 81001; 82140; 82550; 83735; 84100; 84484; 85025; 87086; 93005; 94664; G0378; J0696; J1650